=== PATIENT | male | born 1965 | race Hispanic/Latino ===

== ENCOUNTER 2022-01-19 13:45 | Emergency (ER) | payer SELFPAY ==
--- OUTSIDE RECORDS SUMMARY | 2022-01-19 13:52 | XMS REPORT | Continuity of Care Document ---
:1965 Author Organization [facility] t Address [address] [place] [address] Care Team Providers Name Role Phone Asked, No Pcp Primary Care Physician Unavailable PRADEEP REDDY Attending Clinician Unavailable VIVI DURAND Attending Clinician Unavailable Vivi De Jesus Attending Clinician Camille Perez Attending Clinician Pradeep Reddy MD Attending Clinician Osman Fontaine MD Attending Clinician Steffany Bean MD Attending Clinician Yi Glez MD Attending Clinician Arnoldo Horn Attending Clinician ARNOLDO HOFFMAN Attending Clinician Unavailable ALICIA FRITZ Attending Clinician Unavailable Bala Romeo Attending Clinician BALA RANKIN Attending Clinician Unavailable OSMAN FONTAINE Admitting Clinician Unavailable KEVIN FUNEZ Admitting Clinician Unavailable Osman Fontaine MD Admitting Clinician Payers Payer Name Policy Type Policy Number Effective Date Expiration Date S ource Problems Condition Condition Condition Status Onset Resolution Last Treating Co mments Source Name Details Category Date Date Treatment Clinician Date COVID-19 COVID-19 Disease Active 2021-0 Unive rs 1-28 ity of 00:00: [place] [address] Medical Branch Obesity Obesity Disease Active Univers (BMI (BMI 1-28 ity of 30-39.9) 30-39.9) 00:00: [address] Allergies, Adverse Reactions, Alerts Allergy Allergy Status Severity Reaction(s) Onset Inactive Treating Comm ents Source Name Type Date Date Clinician Rina Miguel Active Unknown 2019-05 Metho di ty to Reaction 0-16 st adverse 00:00: Hospita reaction 00 l s to drug NO KNOWN Drug Active Univers ALLERGIE Class ity of [facility] Social History Social Habit Start Date Stop Date Quantity Comments Source History SDOH [facility] Comment [facility] History of Heavy tobacco [facility] tobacco use smoker [facility] History SDOH [facility] Std [facility] Drinks History SDND [facility] Binge [facility] Exposure to 2021-12-16 2021-12-26 Not sure University SARS-CoV-2 00:00:00 14:34:00 [facility] (event) Branch Tobacco use and 2020-03-05 2020-03-05 Smokeless tobacco [facility] exposure 00:00:00 00:00:00 non-user Hospital Alcohol intake 2020-03-05 2020-03-05 Lifetime [facility] 00:00:00 00:00:00 non-drinker Hospital (finding) History SDND 2020-03-05 2020-03-05 1 [facility] Alcohol Frequency 00:00:00 00:00:00 Hospita l Sex Assigned At [birth year] [facility] 00:[facility] Smoking Status Start Date Stop Date Source Tobacco smoking consumption [facility] unknown Branch Heavy tobacco smoker 2020-03-05 00:00:00 [facility] Medications Ordered Filled Start Stop Current Ordering Indication Dosage Frequency Signature Comments Components Source Medication Medication Date Date Medication? Clinician (SIG) Name Name gabapentin 2021- No 300mg 300 mg, Un toño (NEURONTIN) 12-27 Oral, ity of capsule 300 00:00: 00:07 ONCE, 1 [place] mg 00 :00 dose, On Medical 12/26/21 Branch at 1900, SHORTY insulin 2021- No 5U 5 Units, Unive rs regular 12-26 Subcutaneo ity o f human 23:33: 23:42 us, ONCE, [place] (HUMULIN R) 00 :00 1 dose, On Me dical injection 5 Sun12/26/21 Br anch Units at 1845, Routine NaCl 0.9% 2021- No 1000mL at 999 Uni vers (NS) bolus 12-26-08 mL/hr, ity of infusion 21:45: 23:07 1,000 mL, [place] 1,000 mL 00 :00 IV Medical Infusion, Branch ONCE, 1 dose, On 12/26/21 at 1645, SHORTY gabapentin 2021- Yes [id number] 300mg Take 1 Univers 300 mg 12-26- capsule by ity of capsule 00:00: 04:59 mouth in [place] 00 :00 the Medical morning Branch and 1 capsule at noon and 1 capsule in the evening. Do all this for 30 days. insulin NPH 2021- Yes [id number] 30U inject 30 Univers and regular 12-26-08 Units ity of human 70-30 00:00: 04:59 under the [place] 100 unit/mL 00 :00 skin every Me dical (70-30) morning Branch injection and evening for 30 days. insulin Yes [id number] 32U inject 32 U nivers lispro, 2-09 Units ity of human, 100 00:00: under the [place] unit/mL 00 skin 3 Medical injection (three) Branch times daily with meals. insulin NPH Yes [id number] 30U inject 30 Univers 100 unit/mL 2-09 Units ity of injection 00:00: under the [place] 00 skin every Medical morning Branch and at bedtime. losartan 25 Yes [id number] 25mg Take 1 Univers mg tablet 2-09 tablet by ity o f 00:00: mouth [place] 00 daily. Medical Branch Diabetic Yes [id number] Use as Uni vers Supplies, 2-09 directed ity of Miscellan. 00:00: [place] Kit 00 Medical Branch insulin Yes [id number] 32U inject 32 U nivers lispro, 2-09 Units ity of human, 100 00:00: under the [place] unit/mL 00 skin 3 Medical injection (three) Branch times daily with meals. insulin NPH Yes [id number] 30U inject 30 Univers 100 unit/mL 2-09 Units ity of injection 00:00: under the [place] 00 skin every Medical morning Branch and at bedtime. losartan 25 Yes [id number] 25mg Take 1 Univers mg tablet 2-09 tablet by ity o f 00:00: mouth [place] 00 daily. Medical Branch Diabetic Yes [id number] Use as Uni vers Supplies, 2-09 directed ity of Miscellan. 00:00: [place] Kit 00 Medical Branch insulin Yes [id number] 32U inject 32 U nivers lispro, 2-09 Units ity of human, 100 00:00: under the [place] unit/mL 00 skin 3 Medical injection (three) Branch times daily with meals. insulin NPH Yes [id number] 30U inject 30 Univers 100 unit/mL 2-09 Units ity of injection 00:00: under the [place] 00 skin every Medical morning Branch and at bedtime. losartan 25 Yes [id number] 25mg Take 1 Univers mg tablet 2-09 tablet by ity o f 00:00: mouth [place] 00 daily. Medical Branch Diabetic Yes [id number] Use as Uni vers Supplies, 2-09 directed ity of Miscellan. 00:00: [place] Kit 00 Medical Branch benzonatate 2020- No [id number] 100mg Take 1 Univers 100 mg 06-29-24 capsule by ity of capsule 00:00: 05:59 mouth 3 [place] 00 :00 (three) Medical times Branch daily for 14 days. benzonatate 2020- No [id number] 100mg Take 1 Univers 100 mg 06-29-24 capsule by ity of capsule 00:00: 05:59 mouth 3 [place] 00 :00 (three) Medical times Branch daily for 14 days. insulin NPH Yes 30U 30 Units, U nivers (HUMULIN N) 06-28 Subcutaneo it y of injection 15:00: , [place] 30 Units 00 QAM+HS, Medical First dose Branch (after last modificati on) on Sun06/28/20 at 0900, Until Discontinu ed, Routine insulin Yes 32U 32 Units, Unive rs lispro - Subcutaneo ity of (human) 14:00: us, TID [place] (HumaLOG 00 MEALS, Medical U-100) First dose Branch injection (after 32 Units last modificati on) on 06/28/20 at 0800, Until Discontinu ed, Routine insulin NPH 2020- No 25U 25 Units, Univers (HUMULIN N) 06-28 Subcutaneo i ty of injection 03:00: 13:53 us, [place] 25 Units 00 :55 QAM+HS, Medical First dose Branch (after last modificati on) on 06/27/20 at 2100, Until Discontinu ed, Routine enoxaparin 2020- No [id number] 40mg inject 0.4 Univers 40 mg/0.4 06-28 mL under ity o f mL 00:00: 00:00 the skin [place] injection 00 :00 every 12 Medica l (twelve) Branch hours. furosemide 2020- No [id number] 20mg Inject 2 Univers 10 mg/mL 06-28 mL as ity of injection 00:00: 00:00 directed [place] 00 :00 every 12 Medical (twelve) Branch hours. insulin 2020- No [id number] 32U inject 32 Univers lispro, 06-28- Units ity of human, 100 00:00: 00:00 under the [place] unit/mL 00 :00 skin 3 Medical injection (three) Branch times daily with meals. insulin NPH 2020- No [id number] 30U inject 30 Univers 100 unit/mL 06-28- Units ity of injection 00:00: 00:00 under the [place] 00 :00 skin every Medical morning Branch and at bedtime. ipratropium 2020- No [id number] 1{puff} Inhale 1 Univers 17 06-28- Puff 4 ity of mcg/actuati 00:00: 00:00 (four) [place] on inhaler 00 :00 times Medical daily. Branch melatonin 3 2020- No [id number] 3mg Take 1 Univers mg tablet 06-28 tablet by ity of 00:00: 00:00 mouth at [place] 00 :00 bedtime. Medical Branch losartan 25 2020- No [id number] 25mg Take 1 Univers mg tablet 06-28 tablet by ity of 00:00: 00:00 mouth [place] 00 :00 daily. Medical Branch albuterol 2020- No [id number] 1{puff} Inhale 1 Univers 90 06-28 Puff 4 ity of mcg/actuati 00:00: 00:00 (four) [place] on inhaler 00 :00 times Medical daily. Branch acetaminoph 2020- No [id number] 650mg Take 2 Univers en 325 mg 06-28 tablets by ity of tablet 00:00: 00:00 mouth [place] 00 :00 every 6 Medical (six) Branch hours as needed for Pain (scale 1-3) or Temp > 38.5 C. benzonatate 2020- No [id number] 100mg Take 1 Univers 100 mg 06-28 capsule by ity of capsule 00:00: 00:00 mouth 3 [place] 00 :00 (three) Medical times Branch daily. dextrometho 2020- No [id number] 5mL Take 5 mL Univers rphan-guaif 06-28 by mouth ity of enesin 00:00: 00:00 every 6 [place] 10-100 mg/5 00 :00 (six) Medical mL solution hours as Bran ch needed for Cough. insulin 2020- No 28U 28 Units, [facility] lispro 06-27 Subcutaneo ity of (human) 18:00: 13:53 us, TID [place] (HumaLOG 00 :55 MEALS, Medical U-100) First dose Branch injection (after 28 Units last modificati on) on 06/27/20 at 1200, Until Discontinu ed, Routine insulin NPH 2020- No [id number] 25U inject 25 Univers 100 unit/mL 06-27- Units ity of injection 00:00: 00:00 under the [place] 00 :00 skin every Medical morning Branch and at bedtime for 30 days. insulin 2020- No [id number] 10U inject 10 Univers lispro, 06-2708 Units ity of human, 100 00:00: 00:00 under the [place] unit/mL 00 :00 skin 3 Medical injection (three) Branch times daily with meals. insulin 2020- No [id number] 28U inject 28 Univers lispro, 06-27 Units ity of human, 100 00:00: 00:00 under the [place] unit/mL 00 :00 skin 3 Medical injection (three) Branch times daily with meals for 30 days. insulin 2020- No 22U 22 Units, Univ ers lispro 06-25 Subcutaneo ity of (human) 14:00: 15:32 us, TID [place] (HumaLOG 00 :16 MEALS, Medical U-100) First dose Branch injection (after 22 Units last modificati on) on Sun06/25/20 at 0800, Until Discontinu ed, Routine insulin NPH 2020- No 20U 20 Units, Univers (HUMULIN N) 06-25 Subcutaneo i ty of injection 03:00: 15:32 us, [place] 20 Units 00 :16 QAM+HS, Medical First dose Branch (after last modificati on) on Sun06/24/20 at 2100, Until Discontinu ed, Routine dexamethaso No 6mg 6 mg, IV U nivers ne 06-24 Push, ity of (DECADRON 23:00: 22:25 DAILY AT [place] PHOSPHATE) 00 :00 1700, 4 Medica l injection 6 doses, Branch mg First dose (after last reorder) on Sun06/24/20 at 1700, Last dose on Sun06/27/20 at 1700, Routine furosemide Yes 20mg 20 mg, Unive rs (LASIX) 06-24 Slow IV ity of injection 02:00: Push, [place] 20 mg 00 Q12H, Medical First dose Branch on Sun06/23/20 at 2000, Until Discontinu ed, Routine insulin 2020- No 20U 20 Units, Univ ers lispro 06-23 Subcutaneo ity of (human) 23:00: 23:02 us, TID [place] (HumaLOG 00 :09 MEALS, Medical U-100) First dose Branch injection (after 20 Units last modificati on) on Sun06/23/20 at 1700, Until Discontinu ed, Routine losartan Yes 25mg 25 mg, Univers (COZAAR) 06-23 Oral, ity of tablet 25 22:00: DAILY, [place] mg 00 First dose Medical on Sun06/23/20 at 1600, Until Discontinu ed, Routine insulin NPH No 18U 18 Units, Univers (HUMULIN N) 06-23 Subcutaneo i ty of injection 03:00: 23:02 us, [place] 18 Units 00 :09 QAM+HS, Medical First dose Branch (after last modificati on) on Sun06/22/20 at 2100, Until Discontinu ed, Routine insulin No 16U 16 Units, Univ ers lispro 06-23 Subcutaneo ity of (human) 00:30: 22:07 us, TID [place] (HumaLOG 00 :47 MEALS, Medical U-100) First dose Branch injection (after 16 Units last modificati on) on Sun06/22/20 at 1830, Until Discontinu ed, Routine hydrALAZINE No 10mg 10 mg, Uni vers (APRESOLINE 06-22 Oral, ity of ) tablet 10 09:48: 23:50 Q6HPRN, 2 [place] mg 41 :00 doses, Medical Starting Branch Sun06/22/20 at 0348, Until Discontinu ed, Routine, Sustained SBP>160 enoxaparin Yes 40mg 40 mg, Unive rs (LOVENOX) 06-22 Subcutaneo ity of injection 02:00: us, Q12H, [place] 40 mg 00 First dose Medical on Sun06/21/20 at 2000, Until Discontinu ed, Routine insulin No 12U 12 Units, Univ ers lispro 06-21 Subcutaneo ity of (human) 23:00: 00:05 us, TID [place] (HumaLOG 00 :18 MEALS, Medical U-100) First dose Branch injection (after 12 Units last modificati on) on Sun06/21/20 at 1700, Until Discontinu ed, Routine melatonin Yes 3mg 3 mg, Univers (MELATIN) 2-01 Oral, QHS, ity of tablet 3 mg 03:00: First dose [place] 00 on [facility] 06/20/20 at [place] 2100, Until Discontinu ed, Routine ondansetron Yes 4mg 4 mg, Slow Univers (ZOFRAN 06-20 IV Push, ity of (PF)) 14:26: Q6HPRN, [place] injection 4 53 Starting Medi anthony mg [facility] 06/20/20 at 0826, Until Discontinu ed, Routine, Nausea and Vomiting (N/V) melatonin 2020- No 3mg 3 mg, Univer s (MELATIN) 06-20 Oral, ity of tablet 3 mg 04:00: 03:34 ONCE, 1 [place] 00 :00 dose, [facility] 06/19/20 at Branch 2200, Routine enoxaparin 2020- No 1mg/kg 111 mg Un toño (LOVENOX) 06-20 (rounded ity o f injection 02:00: 23:07 from 108.9 [place] 111 mg 00 :20 mg = 1 Medical mg/kg [place] ?108.9 kg), Subcutaneo us, Q12H, First dose (after last modificati on) on [facility] 06/19/20 at 2000, Until Discontinu ed, Routine Sliding Yes [facility]cut[facility]o [facility] ers Scale 06-19 , TID ity of Insulin - 23:00: MEALS+HS, [place] Lispro 00 First dose Medical (HumaLOG) + (after Branch Fsbg last Testing modificati on) on [facility] 06/19/20 at 1700, Until Discontinu ed, Routine insulin 2020- No 10U 10 Units, [facility] lispro 06-19 Subcutaneo ity of (human) 23:00: 21:03 us, TID [place] (HumaLOG 00 :43 MEALS, Medical U-100) First dose Branch injection (after 10 Units last modificati on) on [facility] 06/19/20 at 1700, Until Discontinu ed, Routine insulin NPH 2020- No 15U 15 Units, Univers (HUMULIN N) 06-1903 Subcutaneo i ty of injection 15:45: 00:05 , [place] 15 Units 00 :18 QAM+HS, Medical First dose Branch on 06/19/20 at 0945, Until Discontinu ed, Routine ipratropium Yes 1{puff} 1 Puff, Univers (ATROVENT -30 Inhalation ity of HFA) 14:00: , QID, [place] inhaler 1 00 First dose Medi anthony Puff on Sat Branch 06/19/20 at 0800, Until Discontinu ed, Routine
Is this order for a patient with suspected or confirmed COVID-19 infection? Yes albuterol Yes 1{puff} 1 Puff, Un toño (VENTOLIN) 30 Inhalation ity of inhaler 1 14:00: , QID, [place] Puff 00 First dose Medical on Sat Branch 06/19/20 at 0800, Until Discontinu ed, Routine
Is this order for a patient with suspected or confirmed COVID-19 infection? Yes morpHINE 2020- No 1mg 1 mg, Slow Un toño injection 1 06-19 IV Push, ity of mg 14:00: 14:02 ONCE, 1 [place] 00 :00 dose, [facility] Medical 06/19/20 at Branch 0800, Routine insulin 2020- No 3U 3 Units, Unive rs lispro 06-19 Subcutaneo ity of (human) 14:00: 20:16 , D [place] (HumaLOG 00 :39 MEALS, Medical U-100) First dose Branch injection 3 on Sat Units 06/19/20 at 0800, Until Discontinu ed, Routine benzonatate Yes 100mg 100 mg, Un toño (TESSALON 130 Oral, TID, ity of PERLES) 04:00: First dose [place] capsule 100 00 on Fri Medica l mg 06/18/20 at Branch 2200, Until Discontinu ed, Routine dextrometho 0 Yes 5mL 5 mL, Unive rs rphan-guaif 30 Oral, ity of enesin 03:53: Q6R, [place] (ROBITUSSIN 59 Starting Medi anthony DM) 10-100 Fri Branch mg/5 mL 06/18/20 at solution 5 2153, mL Until Discontinu ed, Routine, Cough HYDROcodone Yes 1{tbl} 1 tablet, Univers -acetaminop -30 Oral, ity of hen (NORCO 03:52: Q6HPRN, [place] 5) 5-325 mg 35 Starting Medi anthony tablet 1 Fri Branch tablet 06/18/20 at 2152, Until Discontinu ed, Routine, Pain (scale 4-6) acetaminoph Yes 650mg 650 mg, Un toño en 30 Oral, ity of (TYLENOL) 03:52: Q6HPRN, [place] tablet 650 20 Starting Medic al mg Fri Branch 06/18/20 at 2152, Until Discontinu ed, Routine, Pain (scale 1-3), Temp > 38.5 C albuterol Yes 2{puff} 2 Puff, Un toño (VENTOLIN) 30 Inhalation ity of inhaler 2 03:52: , Q4HPRN, [place] Puff 02 Starting Medical Fri Branch 06/18/20 at 2152, Until Discontinu ed, Routine, Wheezing, Shortness of Breath, Bronchospa sm, Chest tightness< br>Is this order for a patient with suspected or confirmed COVID-19 infection? Yes dexamethaso 2020- No 6mg 6 mg, IV U nivers ne 06-18 02-03 Push, ity of (DECADRON 23:00: 23:25 DAILY AT [place] PHOSPHATE) 00 :00 1700, 6 Medica l injection 6 doses, Branch mg First dose on Sun06/18/20 at 1700, Last dose on Sun06/23/20 at 1700, Routine enoxaparin 2020- No 40mg 40 mg, Univ ers (LOVENOX) 06-1830 Subcutaneo ity of injection 14:00: 18:22 us, Q12H, [place] 40 mg 00 :38 First dose Medical (after Branch last modificati on) on Sun06/18/20 at 0800, Until Discontinu ed, Routine ALPRAZolam 2020- No .25mg 0.25 mg, U nivers (XANAX) 06-18 Oral, ONCE ity o f tablet 0.25 10:15: 09:18 NOW, 1 [place] mg 00 :00 dose, Fri Medical 06/18/20 at Branch 0415, Routine ondansetron 2020- No 4mg 4 mg, Slow Univers (ZOFRAN 06-18 IV Push, ity of (PF)) 04:13: 13:59 Q6HPRN, 3 [place] injection 4 48 :00 doses, Medica l mg Starting Branch [place] 06/17/20 at 2213, Until Discontinu ed, Routine, Nausea and Vomiting (N/V) insulin 2020- No 10U 10 Units, Univ ers regular 06-18 IV Push, ity of human 04:00: 02:54 ONCE NOW, [place] (HUMULIN R) 00 :00 1 dose, Medic al injection [facility] 10 Units 06/17/20 at 2200, Routine Sliding 2020- No Subcutaneo Uni vers Scale 06-18 us, TID ity of Insulin - 03:00: 20:16 MEALS+HS, [place] Lispro 00 :39 First dose Medical (HumaLOG) + on [place] Branch [facility] 06/17/20 at Testing 2100, Until Discontinu ed, Routine acetaminoph 2020- No 650mg 650 mg, U nivers en 06-18 Oral, ity of (TYLENOL) 02:45: 03:54 Q6HPRN, [place] tablet 650 30 :56 Starting Medic al mg [place] Branch 06/17/20 at 2045, Until 06/18/20 at 2154, Routine, Pain (scale 1-3) azithromyci 2020- No 500mg 500 mg, IV Univers n 06-18 Piggyback, ity of (ZITHROMAX) 02:30: 04:38 ONCE, 1 [place] 500 mg in 00 :00 dose, [place] Medic al NaCl 0.9% 06/17/20 at Bran ch (NS) 250 mL 2029, 250 VIAL-MATE mL
Reas IV on for piggyback Anti-Infec tive: Empiric Therapy for Suspected Infection< br>Empiric Therapy Site: Respirator y
Durat ion of therapy: 72 hours cefTRIAXone 2020- No 1000mg 1,000 mg, Univers (ROCEPHIN) 06-18 IV ity of 1,000 mg in 02:30: 03:05 Piggyback, [place] NaCl 0.9% 00 :00 ONCE, 1 Medical (NS) 50 mL dose, [place] Bran ch MINI-BAG 06/17/20 at 2030, 50 mL
Reas on for Anti-Infec tive: Empiric Therapy for Suspected Infection< br>Empiric Therapy Site: Respirator y
Durat ion of therapy: 72 hours iohexol 2020- No 100mL 100 mL, Unive rs (OMNIPAQUE 06-18 Intravenou it y of 350 02:15: 02:15 s, ONCE, 1 [place] BULK-100 00 :00 dose, [place] Medica l mL) 06/17/20 at [place] injection 2014, 100 mL Routine ibuprofen No 600mg 600 mg, Uni vers (IBU) 06-18 Oral, ity of tablet 600 02:15: 01:10 ONCE, 1 [place] mg 00 :00 dose, [facility] Medical 06/17/20 at [place] 2014, SHORTY NaCl 0.9% 2020- No 1000mL at 150 Uni vers (NS) IV 06-18 mL/hr, IV ity of infusion 01:15: 04:08 Infusion, [place] 1,000 mL 00 :55 CONTINUOUS Medic al , Starting [facility] 06/17/20 at 1915, Until 06/19/20 at 2208, SHORTY azithromyci 2020- No [id number] 250mg Take 1 Univers n 06-16 [id number] tablet by ity of (ZITHROMAX) 00:00: 00:00 mouth [place] 250 mg 00 :00 daily for Medical tablet 4 days. Branch Take 500 mg day 1, then 250 mg days 2 to 5. azithromyci 2020- No [id number] 250mg Take 1 Univers n 06-16 [id number] tablet by ity of (ZITHROMAX) 00:00: 05:59 mouth [place] 250 mg 00 :00 daily for Medical tablet 4 days. Branch Take 500 mg day 1, then 250 mg days 2 to 5. azithromyci 2020- No 500mg 500 mg, U nivers n 06-15 Oral, ity of (ZITHROMAX) 08:15: 07:24 ONCE, 1 [place] tablet 500 00 :00 dose, Tue Medi anthony mg 06/15/20 at Branch 0215, SHORTY
Re ason for Anti-Infec tive: Documented Infection< br>Documen patrick Infection Site: Respirator y
Durat ion of Therapy: Other (see Comments) iohexol 2020- No 100mL 100 mL, Unive rs (OMNIPAQUE 06-15 Intravenou it y of 350 06:00: 06:00 s, ONCE, 1 [place] BULK-100 00 :00 dose, Tue Medica l mL) 06/15/20 at [place] injection 0000, 100 mL Routine FENTanyl PF 2020- No 50ug 50 mcg, Un toño (SUBLIMAZE 06-15 Slow IV ity o f (PF)) 05:30: 05:30 Push, [place] injection 00 :00 ONCE, 1 Medical 50 mcg dose, [facility] 06/14/20 at 2330, SHORTY ketorolac 2020- No 30mg 30 mg, Unive rs (TORADOL) 06-15 Slow IV ity of injection 05:30: 05:30 Push, [place] 30 mg 00 :00 ONCE, 1 Medical dose, [facility] 06/14/20 at 2330, SHORTY
Fa culty member approving Restricted medication : ARNOLDO HOFFMAN ondansetron 2020- No 4mg 4 mg, Slow Univers (ZOFRAN 06-15 IV Push, ity of (PF)) 05:30: 05:30 ONCE, 1 [place] injection 4 00 :00 dose, Mon Med ical mg 06/14/20 at [place] 2330, SHORTY albuterol Yes [id number] 2{puff} Inhale 2 Univers 90 06-15 [id number] Puffs ity of mcg/actuati 00:00: every 4 [place] on inhaler 00 (four) Medical hours as Branch needed for Wheezing or Shortness of Breath. albuterol Yes [id number] 2{puff} Inhale 2 Univers 90 1-26 [id number] Puffs ity of mcg/actuati 00:00: every 4 [place] on inhaler 00 (four) Medical hours as Branch needed for Wheezing or Shortness of Breath. albuterol Yes [id number] 2{puff} Inhale 2 Univers 90 1-26 [id number] Puffs ity of mcg/actuati 00:00: every 4 [place] on inhaler 00 (four) Medical hours as Branch needed for Wheezing or Shortness of Breath. albuterol Yes [id number] 2{puff} Inhale 2 Univers 90 1-26 [id number] Puffs ity of mcg/actuati 00:00: every 4 [place] on inhaler 00 (four) Medical hours as Branch needed for Wheezing or Shortness of Breath. Zinc 2020- No [id number] 100mg Take 100 Univers Gluconate 06-15- [id number] mg by ity o f 100 mg Tab 00:00: 05:59 mouth [place] 00 :00 daily for Medical 30 days. Branch Zinc 2020- No [id number] 100mg Take 100 Univers Gluconate 06-15- [id number] mg by ity o f 100 mg Tab 00:00: 05:59 mouth [place] 00 :00 daily for Medical 30 days. Branch Zinc 2020- No [id number] 100mg Take 100 Univers Gluconate 06-15- [id number] mg by ity o f 100 mg Tab 00:00: 05:59 mouth [place] 00 :00 daily for Medical 30 days. Branch metFORMIN Yes 1000mg Q.5D Take 1,000 Methodi (GLUCOPHAGE 8-[address] ) 500 mg 00:00: mouth 2 Hospit a tablet 00 (two) l times a day. gabapentin 0 Yes 300mg Take 300 Me thodi (NEURONTIN) 8-[address] 300 mg 00:00: mouth. Hospita capsule 00 l metFORMIN 0 Yes 1000mg Q.5D Take 1,000 Methodi (GLUCOPHAGE 8-[address] ) 500 mg 00:00: mouth 2 Hospit a tablet 00 (two) l times a day. gabapentin Yes 300mg Take 300 Me thodi (NEURONTIN) 8-[address] 300 mg 00:00: mouth. Hospita capsule 00 l insulin 2019- No 10U 10 Units, Univ ers regular 01-12 Slow IV ity of human 22:30: 21:50 Push, [place] (HUMULIN R) 00 :00 ONCE, 1 Medic al injection dose, Tue Branc h 10 Units 01/13/20 at 1730, Routine cefTRIAXone 2019- No 1000mg 1,000 mg, Univers (ROCEPHIN) 01-12 IV ity of 1,000 mg in 22:30: 22:22 Piggyback, [place] NaCl 0.9% 00 :00 ONCE, 1 Medical (NS) 50 mL dose, Tue Bran ch MINI-BAG 01/13/20 at 1730, 50 mL
Reas on for Anti-Infec tive: Documented Infection< br>Documen patrick Infection Site: Skin / Soft Tissue
Duration of Therapy: Other (see Comments) iohexol 2020- No 120mL 120 mL, Unive rs (OMNIPAQUE 01-12 Intravenou it y of 350 20:45: 20:45 s, ONCE, 1 [place] BULK-100 00 :00 dose, Tue Medica l mL) 01/13/20 at Branch injection 1545, 120 mL Routine metFORMIN 2020- No [id number] 1000mg Take 2 Univers 500 mg 01-12 tablets by ity of tablet 00:00: 04:59 mouth 2 [place] 00 :00 (two) Medical times Branch daily for 30 days. gabapentin 2020- No [id number] 300mg Take 1 Univers 300 mg 01-12 capsule by ity of capsule 00:00: 04:59 mouth 3 [place] 00 :00 (three) Medical times Branch daily for 10 days. cephALEXin 2020- No [id number] 500mg Take 1 Univers (KEFLEX) 01-12 capsule by ity of 500 mg 00:00: 04:59 mouth 2 [place] capsule 00 :00 (two) Medical times Branch daily for 10 days. Vital Signs Vital Name Observation Time Observation Value Comments Source Systolic blood 2021-12-26 19:33:00 155 mm[Hg] Univer sity of pressure [place] Medical Branch Diastolic blood 2021-12-26 19:33:00 85 mm[Hg] Unive rsity of pressure [place] Medical Branch Heart rate 2021-12-26 19:33:00 65 /min Universi ty of [place] [facility] Body temperature 2021-12-26 19:33:00 36.44 Shayna [facility] [place] [facility] Respiratory rate 2021-12-26 19:33:00 19 /min [facility] [place] [facility] Oxygen saturation in 2021-12-26 19:33:00 99 /min [facility] by [place] [employer] Pulse oximetry Branch Body height 2021-12-26 19:31:00 185.4 cm [facility] [place] [facility] Body weight 2021-12-26 19:31:00 104.327 kg [facility] [place] [facility] BMI 2021-12-26 19:31:00 30.34 kg/m2 [facility] [place] [facility] Systolic blood 2020-06-29 22:12:00 120 mm[Hg] [facility] [place] [facility] Diastolic blood 2020-06-29 22:12:00 71 mm[Hg] [facility] [place] [facility] Heart rate 2020-06-29 22:12:00 77 /min [facility] [place] [facility] Body temperature 2020-06-29 22:12:00 36.61 Shayna [facility] [place] [facility] Respiratory rate 2020-06-29 22:12:00 20 /min [facility] [place] [facility] Oxygen saturation in 2020-06-29 22:12:00 95 /min [facility] by [place] [employer] Pulse oximetry Branch Body height 2020-06-18 04:02:00 188 cm [facility] [place] [facility] Body weight 2020-06-18 04:02:00 108.863 kg [facility] [place] [facility] BMI 2020-06-18 04:02:00 30.80 kg/m2 [facility] [place] [facility] Systolic blood 2020-06-29 22:12:00 120 mm[Hg] [facility] [place] [facility] Diastolic blood 2020-06-29 22:12:00 71 mm[Hg] [facility] [place] [facility] Heart rate 2020-06-29 22:12:00 77 /min [facility] [place] [facility] Body temperature 2020-06-29 22:12:00 36.61 Shayna [facility] [place] [facility] Respiratory rate 2020-06-29 22:12:00 20 /min [facility] [place] [facility] Oxygen saturation in 2020-06-29 22:12:00 95 /min [facility] [place] [employer] Pulse oximetry Branch Body height 2020-06-18 04:02:00 188 cm [facility] [place] [facility] Body weight 2020-06-18 04:02:00 108.863 kg [facility] [place] [facility] BMI 2020-06-18 04:02:00 30.80 kg/m2 [facility] [place] [facility] Systolic blood 2020-06-15 07:09:00 119 mm[Hg] [facility] [place] [facility] Diastolic blood 2020-06-15 07:09:00 69 mm[Hg] [facility] [place] [facility] Heart rate 2020-06-15 07:09:00 57 /min [facility] [place] [facility] Body temperature 2020-06-15 07:09:00 36.72 Shayna [facility] [place] [facility] Respiratory rate 2020-06-15 07:09:00 13 /min [facility] [place] [facility] Oxygen saturation in 2020-06-15 07:09:00 97 /min [facility] [place] [employer] P[facility] Branch Body weight 2020-06-15 04:28:00 108.863 kg [facility] [place] [facility] BMI 2020-06-15 04:28:00 31.66 kg/m2 [facility] [place] [facility] Body height 2020-06-15 04:26:00 185.4 cm [facility] [place] [facility] Systolic blood 2020-06-15 07:09:00 119 mm[Hg] [facility] [place] [facility] Diastolic blood 2020-06-15 07:09:00 69 mm[Hg] [facility] [place] [facility] Heart rate 2020-06-15 07:09:00 57 /min [facility] [place] [facility] Body temperature 2020-06-15 07:09:00 36.72 Shayna [facility] Respiratory rate 2020-06-15 07:09:00 13 /min [facility] [place] [facility] Oxygen saturation in 2020-06-15 07:09:00 97 /min [facility] blood by [facility] Pulse oximetry Branch Body weight 2020-06-15 04:28:00 108.863 kg [facility] [place] [facility] BMI 2020-06-15 04:28:00 31.66 kg/m2 [facility] [place] [facility] [place] Body height 2020-06-15 04:26:00 185.4 cm [facility] Systolic blood 2020-01-13 21:46:00 116 mm[Hg] [facility] Diastolic blood 2020-01-13 21:46:00 72 mm[Hg] Unive rsity of pressure [facility] Heart rate 2020-01-13 21:46:00 62 /min [facility] [place] [facility] [place] Body temperature 2020-01-13 21:46:00 36.61 Shayna [facility] [place] [facility] Respiratory rate 2020-01-13 21:46:00 16 /min [facility] [place] [facility] Oxygen saturation in 2020-01-13 21:46:00 99 /min [facility] by [facility] Pulse oximetry Branch Body weight 2020-01-13 19:38:00 108.863 kg [facility] [place] [facility] Systolic blood 2020-01-13 21:46:00 116 mm[Hg] [facility] [place] [facility] Diastolic blood 2020-01-13 21:46:00 72 mm[Hg] Unive rsity of pressure [facility] Heart rate 2020-01-13 21:46:00 62 /min [facility] [place] [facility] Body temperature 2020-01-13 21:46:00 36.61 Shayna [facility] [place] [facility] Respiratory rate 2020-01-13 21:46:00 16 /min [facility] [place] [facility] Oxygen saturation in 2020-01-13 21:46:00 99 /min [facility] by [facility] Pulse oximetry Branch Body weight 2020-01-13 19:38:00 108.863 kg [facility] [place] [facility] Procedures Procedure Date / Time Performing Clinician Source Performed EKG-12 LEAD 2021-12-27 00:01:26 Kevin Funez [facility] POCT GLUCOSE (AUTOMATED) 2021-12-26 23:12:00 Vivi Durand [facility] TROPONIN I 2021-12-26 20:21:00 Kevin Funez [facility] COMP. METABOLIC PANEL 2021-12-26 20:21:00 Kevin Funez [facility] ([id number]) [facility] CBC WITH DIFF 2021-12-26 20:21:00 Kevin Funez [facility] N-TERMINAL PRO-BNP 2021-12-26 20:21:00 Kevin Funez [facility] XR CHEST 2 VW 2021-12-26 19:48:25 Kevin Funez [facility] POCT GLUCOSE (AUTOMATED) 2021-12-26 19:33:00 Doctor Unassigned, [facility] [place] [facility] CONSENT/REFUSAL FOR 2021-12-26 19:23:27 Doctor Unassigned, [facility] DIAGNOSIS AND TREATMENT [place] [facility] POCT GLUCOSE (AUTOMATED) 2020-06-29 17:44:00 Pradeep Reddy [facility] POCT GLUCOSE (AUTOMATED) 2020-06-29 14:41:00 Pradeep Reddy [facility] POCT GLUCOSE (AUTOMATED) 2020-06-29 03:09:00 Pradeep Reddy [facility] POCT GLUCOSE (AUTOMATED) 2020-06-28 23:30:00 BarryPradeep [facility] POCT GLUCOSE (AUTOMATED) 2020-06-28 21:53:00 Pradeep Reddy [facility] COVID-19 (ID NOW RAPID 2020-06-28 20:51:00 Jolly Antoine [facility] TESTING) Medical [place] LAB ONLY COVID 2020-06-28 20:51:[address] [facility] INTERPRETATION [facility] POCT GLUCOSE (AUTOMATED) 2020-06-28 18:20:00 Barry, Pradeep [facility] POCT GLUCOSE (AUTOMATED) 2020-06-28 13:46:00 Barry, Pradeep [facility] POCT GLUCOSE (AUTOMATED) 2020-06-28 03:00:00 Barry, Pradeep [facility] POCT GLUCOSE (AUTOMATED) 2020-06-27 21:48:00 Barry, Pradeep [facility] POCT GLUCOSE (AUTOMATED) 2020-06-27 17:44:00 Barry, Pradeep [facility] POCT GLUCOSE (AUTOMATED) 2020-06-27 14:12:00 Barry, Pradeep [facility] POCT GLUCOSE (AUTOMATED) 2020-06-27 14:10:00 Barry, Pradeep [facility] POCT GLUCOSE (AUTOMATED) 2020-06-27 05:35:00 Barry, Pradeep [facility] POCT GLUCOSE (AUTOMATED) 2020-06-27 02:13:00 Barry, Pradeep [facility] POCT GLUCOSE (AUTOMATED) 2020-06-26 23:41:00 Barry, Pradeep [facility] XR CHEST 1 VW 2020-06-26 21:39:00 Steffany Bean [facility] COMP. METABOLIC PANEL 2020-06-26 18:13:00 Steffany Bean [facility] ([id number]) [facility] CBC WITH DIFF 2020-06-26 18:13:00 Steffany Bean [facility] POCT GLUCOSE (AUTOMATED) 2020-06-26 18:05:00 Barry, Pradeep [facility] POCT GLUCOSE (AUTOMATED) 2020-06-26 14:22:00 Barry, Pradeep [facility] POCT GLUCOSE (AUTOMATED) 2020-06-26 05:29:00 Barry, Pradeep [facility] POCT GLUCOSE (AUTOMATED) 2020-06-26 02:01:00 Barry, Pradeep [facility] POCT GLUCOSE (AUTOMATED) 2020-06-25 23:38:00 Barry, Pradeep [facility] POCT GLUCOSE (AUTOMATED) 2020-06-25 18:12:00 Barry, Pradeep [facility] POCT GLUCOSE (AUTOMATED) 2020-06-25 14:53:00 Barry, Pradeep [facility] POCT GLUCOSE (AUTOMATED) 2020-06-25 04:24:00 Barry, Pradeep [facility] POCT GLUCOSE (AUTOMATED) 2020-06-25 01:54:00 Barry, Pradeep [facility] POCT GLUCOSE (AUTOMATED) 2020-06-25 00:00:00 Barry, Pradeep [facility] POCT GLUCOSE (AUTOMATED) 2020-06-24 17:41:00 Barry, Pradeep [facility] POCT GLUCOSE (AUTOMATED) 2020-06-24 14:14:00 Barry, Pradeep [facility] POCT GLUCOSE (AUTOMATED) 2020-06-24 02:52:00 Barry, Pradeep [facility] POCT GLUCOSE (AUTOMATED) 2020-06-23 23:24:00 Barry, Pradeep [facility] POCT GLUCOSE (AUTOMATED) 2020-06-23 17:52:00 Barry, Pradeep [facility] XR CHEST 1 VW 2020-06-23 17:01:09 Steffany Bean [facility] POCT GLUCOSE (AUTOMATED) 2020-06-23 14:24:00 Barry, Pradeep [facility] POCT GLUCOSE (AUTOMATED) 2020-06-23 02:16:00 Barry, Pradeep [facility] POCT GLUCOSE (AUTOMATED) 2020-06-22 23:47:00 BarryNashPradeep U [facility] POCT GLUCOSE (AUTOMATED) 2020-06-22 17:45:00 BarryNashPradeep U [facility] POCT GLUCOSE (AUTOMATED) 2020-06-22 14:21:00 BarryNashPradeep U [facility] POCT GLUCOSE (AUTOMATED) 2020-06-22 02:08:00 BarryNashPradeep U [facility] POCT GLUCOSE (AUTOMATED) 2020-06-21 23:01:00 BarryNashPradeep U [facility] BILATERAL VENOUS DUPLEX 2020-06-21 19:31:22 Steffany Bean [facility] LOWER EXTREMITY BY [facility] VASCULAR LAB POCT GLUCOSE (AUTOMATED) 2020-06-21 17:44:00 Pradeep Reddy U [facility] D-DIMER 2020-06-21 16:14:00 [facility] 2020-06-21 16:14:00 Steffany Bean [facility] POCT GLUCOSE (AUTOMATED) 2020-06-21 15:32:00 BarryNashPradeep U [facility] POCT GLUCOSE (AUTOMATED) 2020-06-21 14:05:00 BarryNashPradeep U [facility] POCT GLUCOSE (AUTOMATED) 2020-06-21 03:36:00 BarryNashPradeep U [facility] POCT GLUCOSE (AUTOMATED) 2020-06-20 22:38:00 Barry, Pradeep U [facility] POCT GLUCOSE (AUTOMATED) 2020-06-20 18:09:00 Barry Pradeep U [facility] POCT GLUCOSE (AUTOMATED) 2020-06-20 14:01:00 Barry Pradeep U [facility] POCT GLUCOSE (AUTOMATED) 2020-06-20 02:22:00 Pradeep Reddy [facility] POCT GLUCOSE (AUTOMATED) 2020-06-19 23:41:00 Pradeep Reddy [facility] POCT GLUCOSE (AUTOMATED) 2020-06-19 17:53:00 Pradeep Reddy [facility] POCT GLUCOSE (AUTOMATED) 2020-06-19 15:30:00 Pradeep Reddy [facility] EXTRA TUBE LAV 2020-06-19 15:14:00 Zhen [facility] EXTRA TUBE LT. BLUE 2020-06-19 15:14:00 [facility] 2020-06-19 15:14:00 [facility] TROPONIN I 2020-06-19 15:13:00 [facility] HEPATIC FUNCTION PANEL 2020-06-19 11:30:00 Chastity Cameron [facility] ([id number]) (ALB,T.PRO,BILI [facility] T,BU/BC,ALT,AST,ALK PHOS) POCT GLUCOSE (AUTOMATED) 2020-06-19 02:06:00 Pradeep Reddy [facility] POCT GLUCOSE (AUTOMATED) 2020-06-18 22:55:00 Pradeep Reddy [facility] POCT GLUCOSE (AUTOMATED) 2020-06-18 17:33:00 Pradeep Reddy [facility] LACTATE DEHYDROGENASE 2020-06-18 09:09:00 Cj Benito [facility] FERRITIN SERUM 2020-06-18 09:09:00 Thong [facility] GLYCOSYLATED HEMOGLOBIN 2020-06-18 09:09:00 Thong [facility] (A1C) [facility] INTERLEUKIN 6 2020-06-18 09:08:00 Thong [facility] C-REACTIVE PROTEIN 2020-06-18 09:08:00 Ahmed, Jc [facility] PHOSPHORUS 2020-06-18 09:07:00 Thong [facility] MAGNESIUM 2020-06-18 09:07:00 Thong [facility] BASIC METABOLIC PANEL 2020-06-18 09:07:00 [facility] ([facility], K, CL, CO2, GLUCOSE, Medica l Branch BUN, CREATININE, CA) CBC WITH DIFF 2020-06-18 09:07:00 Thong [facility] POCT GLUCOSE (AUTOMATED) 2020-06-18 03:40:00 Pradeep Reddy [facility] POCT GLUCOSE (AUTOMATED) 2020-06-18 02:53:00 Pradeep Reddy [facility] COVID-19 (ID NOW RAPID 2020-06-18 02:38:00 Pradeep Reddy [facility] TESTING) Medical Branch LAB ONLY COVID 2020-06-18 02:38:00 Pradeep Reddy [facility] INTERPRETATION [facility] ABG+COOX+NA+K+GLU+CA2+ 2020-06-18 02:32:00 Pr[facility] Red[facility] CHEST PULMONARY 2020-06-18 02:13:27 Pradeep Reddy [facility] ANGIOGRAM [facility] XR CHEST 1 VW 2020-06-18 01:44:35 Darius [facility] BLOOD CULTURE SCREEN 2020-06-18 01:40:00 Pradeep Reddy [facility] LACTIC ACID WHOLE BLOOD 2020-06-18 01:14:00 Dmitri Mccoy [facility] TROPONIN I 2020-06-18 01:09:00 Darius [facility] HEPATIC FUNCTION PANEL 2020-06-18 01:09:00 Dmitri Mccoy [facility] ([id number]) (ALB,T.PRO,BILI Medical Branch T,BU/BC,ALT,AST,ALK PHOS) BASIC METABOLIC PANEL 2020-06-18 01:09:00 Dmitri Mccoy [facility] (NA, K, CL, CO2, GLUCOSE, Medica l Branch BUN, CREATININE, CA) CBC WITH DIFF 2020-06-18 01:09:00 Dmitri Mccoy [facility] EXTRA TUBE LT. BLUE 2020-06-18 01:09:00 BarryPradeep presley [facility] HB ECG ROUTINE & RHYTHM 2020-06-18 00:34:55 Darius [facility] HOSPITAL ADMISSION 2020-06-17 06:01:00 Doctor Unassigned, [facility] [place] [facility] CT ABDOMEN PELVIS W 2020-06-15 05:56:00 Arnoldo Hoffman [facility] XR CHEST 1 VW 2020-06-15 04:48:05 Arnoldo Hoffman [facility] LIPASE 2020-06-15 04:36:00 Arnoldo Hoffman [facility] TROPONIN I 2020-06-15 04:36:00 Arnoldo Hoffman [facility] HEPATIC FUNCTION PANEL 2020-06-15 04:36:00 Arnoldo Hoffman [facility] ([id number]) (ALB,T.PRO,BILI [facility] T,BU/BC,ALT,AST,ALK PHOS) BASIC METABOLIC PANEL 2020-06-15 04:36:00 Arnoldo Hoffman [facility] (NA, K, CL, CO2, GLUCOSE, Medica l Branch BUN, CREATININE, CA) CBC WITH DIFF 2020-06-15 04:36:00 Arnoldo Hoffman [facility] POCT GLUCOSE (AUTOMATED) 2020-01-13 22:41:00 Bala Rankin [facility] ABDOMEN PELVIS W 2020-01-13 20:59:[address] [facility] CONTRAST [facility] COVID-19 (ID NOW RAPID 2020-01-13 20:21:00 Bala Rankin [facility] TESTING) Medical Branch LIPASE 2020-01-13 20:14:00 Bala Rankin [facility] COMP. METABOLIC PANEL 2020-01-13 20:14:00 Bala Rankin [facility] ([id number]) [facility] CBC WITH DIFF 2020-01-13 20:14:00 Bala Rankin [facility] Plan of Care Planned Activity Planned Date Details Comments Source Future Scheduled 2022-01-19 HEPATITIS B VACCINES [facility] Test 13:48:12 (1 of 3 - 3-dose series) [code = HEPATITIS B VACCINES (1 of 3 - 3-dose series)] Future Scheduled 2022-01-19 COVID-19 VACCINE (#1) [facility] Test 13:48:12 [code = COVID-19 VACCINE (#1)] Future Scheduled 2022-01-19 Pneumococcal Vaccine: [facility] Test 13:48:12 Pediatrics (0 to 5 Years) and At-Risk Patients (6 to 64 Years) (1 - PCV) [code = Pneumococcal Vaccine: Pediatrics (0 to 5 Years) and At-Risk Patients (6 to 64 Years) (1 - PCV)] Future Scheduled 2022-01-19 Hepatitis C screening [facility] Test 13:48:12 (procedure) [code = 376087958] Future Scheduled 2022-01-19 COLONOSCOPY SCREENING [facility] Test 13:48:12 [code = COLONOSCOPY SCREENING] Future Scheduled 2022-01-19 SHINGLES VACCINES ([address] [facility] Hospital Test 13:48:12 of 2) [code = SHINGLES VACCINES (1 of 2)] Future Scheduled 2022-01-19 INFLUENZA VACCINE Method [facility] Hospital Test 13:48:12 [code = INFLUENZA VACCINE] Future Scheduled 2021-06-22 COVID-19 VACCINE (1) Met [facility] Hospital Test 00:46:48 [code = COVID-19 VACCINE (1)] Future Scheduled 2021-06-22 Hepatitis C screening [facility] Test 00:46:48 (procedure) [code = [id number]] Future Scheduled 2021-06-22 COLONOSCOPY SCREENING [facility] Test 00:46:48 [code = COLONOSCOPY SCREENING] Future Scheduled 2021-06-22 SHINGLES VACCINES (#1) [facility] Hospital Test 00:46:48 [code = SHINGLES VACCINES (#1)] Future Scheduled 2021-06-22 INFLUENZA VACCINE Method [facility] Hospital Test 00:46:48 [code = INFLUENZA VACCINE] Encounters Start End Encounter Admission Attending Care Care Encounter Source Date/Time Date/Time Type Type Clinicians Facility Department ID 2020-06-17 Inpatient X HIMA REDDY HERNANDEZ [id number] Univers 18:49:00 PRADEEP carreno [facility] 2021-12-26 2021-12-26 Emergency X KIZZY [facility] ERT [id number] Univers 14:37:00 19:45:00 VIVI carreno [facility] 2021-12-26 2021-12-26 Emergency [facility] [id number] Univers 14:37:00 19:45:00 Vivi HEALTH [id number] [id number] [facility] [id number] [address] ([facility]) 2020-06-30 2020-06-30 Transition Kenrick Perez [id number] 00:00:00 00:00:00 of Care Camille Donohue [id number] [place] [id number] 2020-06-30 2020-06-30 Transition Kenrick Perez [id number] Univers 00:00:00 00:00:00 of Care Camille Donohue [id number] [id number] [id number] Branch 2020-06-17 2020-06-29 [facility] Pradeep Reddy 1.2.840 [id number] 18:49:00 20:25:00 Encounter [facility] [id number] Pradeep Reddy [place] [id number] [facility] [place] [id number] [place] [address] Yi Glez (CLC) 2020-06-17 2020-06-29 [facility] Pradeep Reddy [id number] .[id number] Univers 18:49:00 20:25:00 Encounter Zhen, [facility] [id number] ity of [place] Pradeep Paramjit [id number] [facility] [place] [phone] [address] Yi Glez ([facility]) 2020-06-14 2020-06-15 Emergency Yasmin, [facility] [id number] 22:05:00 01:37:00 Katye R Health [id number] League [id number] [facility] [phone] [address] ([facility]) 2020-06-14 2020-06-15 Emergency Yasmin, [facility] [id number] [facility] 22:05:00 01:37:00 Katye R Health [id number] it y of [place] [id number] [facility] [phone] [address] ([facility]) 2020-06-14 2020-06-14 Emergency X YASMIN, [facility] ERT [id number] Univers 22:05:00 22:05:00 ARNOLDO carreno [facility] 2020-03-05 2020-03-05 Emergency DE LARSON, [facility] [id number] 9881 [place] 00:00:00 00:00:00 ALICIA 722 [facility] 2020-01-13 2020-01-13 Emergency Ebrawim, [facility] [id number] 14:40:00 18:16:00 Rania Health [id number] [place] [id number] [facility] [phone] [address] ([facility]) 2020-01-13 2020-01-13 Emergency Ebrawim, [facility] [id number] [facility] 14:40:00 18:16:00 Rania [facility] [id number] it y of [place] [id number] [facility] [phone] [address] ([facility]) 2020-01-13 2020-01-13 Emergency X BAKARI [facility] ERT [id number] Univers 14:40:00 14:40:00 BALA carreno [facility] Results Test Description Test Time Test Comments Results Result Comments Source POCT GLUCOSE (AUTOMATED) 2021-12-26 23:13:57 Test Item Value Reference Range Interpretation Comme nts POCT GLU (test code = [id number]) 275 mg/dL 70-110 H Lab Interpretation (test code = 79376-4) [facility]normal [facility]26 19:34:37 Test Item Value Reference Range Interpretation Comments POCT GLU (test code = [id number]) 383 mg/dL 70-110 H Lab Interpretation (test code = Abnormal 20429-0) [facility] COVID [id number] 23:08:00COVID DMT InterpretationInterpretation/Recommendations:Molecular NAAT Tests for Active Infection with the SARS-CoV-2 Virus:The patient has currently tested negative for the SARS-CoV-2 virus that causesCOVID-19 illness, subsequent to previously positive test results. At this time, the patient may be recovering from the infection, which is likely if any present symptoms are decreasing. In ozve-kd-pivuptip illness, the patient may be considered no longer infectious when it has been after 10 days sincesymptom onset, the patient has been afebrile for 24 hours without the use of fever-reducing medications, AND other symptoms of COVID-19 are improving. However, in patients who have been severely ill with COVID-19 or are severely immunocompromised, isolation up to 20 days after symptom onset is recommended. Asymptomatic patients are considered infectious for the first 10 days subsequent to the initialpositive test result. If the patient's symptoms - if any - are persistent/worsening, a repeat molecular NAAT test (PCR, Rapid ID Now, etc.) may be indicated. Tests for IgM and/or IgG Antibodies to the SARS-CoV-2 Virus:Testing for IgM and IgG antibodies approximately 3 weeks after illness onset will likely indicate whether the patient has produced antibodies to the SARS-CoV-2 virus. However, some patients may take longer to develop detectable antibodies, while some patients who were infected with SARS-CoV-2 may never develop antibodies. While antibodies to SARS-CoV-2 may provide some degree of immunity, at this time the strength and duration of the antibody response is unknown. Interpretation Result Comments:These interpretation comments are based upon all COVID-19 testing the patient has had at [facility], including molecular NAAT testing (more commonly known as PCR testing and Rapid ID Now testing) and antibody testing. It doesnot take into account any testing that a patient has had outside of the [facility] medical record. [facility] LABORATORY SERVICESCOVID McsmqkdQWFL-UkI-[id number] Rapid ID NOW (no units) ? ? Date ? Value ? 06/28/2020 ? Not Detected ? ? ? 06/17/2020 ? Positive (A) ? ? ? 01/13/2020 ? Not Detected ? [facility]2020-06-29 17:45:00 Test Item Value Reference Range Interpretation Comments POCT GLU (test code = 149 mg/dL 70-110 H Notifi ed Provider [id number]) Lab Interpretation (test Abnormal code = 08760-4) [facility] GLUCOSE (AUTOMATED)2020-06-29 14:43:00 Test Item Value Reference Range Interpretation Comments POCT GLU (test code = 223 mg/dL 70-110 H Notifi ed Provider [id number]) Lab Interpretation (test Abnormal code = 40183-9) [facility] GLUCOSE (AUTOMATED)2020-06-29 03:09:00 Test Item Value Reference Range Interpretation Comments POCT GLU (test code = 1629447952) 291 mg/dL 70-110 H Lab Interpretation (test code = Abnormal 02457-4) [facility] GLUCOSE (AUTOMATED)2020-06-28 23:31:00 Test Item Value Reference Range Interpretation Comments POCT GLU (test code = 8597700055) 165 mg/dL 70-110 H Lab Interpretation (test code = Abnormal 65673-8) [facility] GLUCOSE (AUTOMATED)2020-06-28 22:42:00 Test Item Value Reference Range Interpretation Comments POCT GLU (test code = 8553243152) 148 mg/dL 70-110 H Lab Interpretation (test code = Abnormal 89384-9) [facility]ID [facility]2020-06-28 21:15:00 Test Item Value Reference Range Interpretation Comments SARS-CoV-2 Rapid ID NOW Not Detected Not Detected (test code = 82090-4) ANNMARIE (test code = ANNMARIE) ID NOW COVID-19 Assay is an isothermal nucleic acid amplification test intended for the qualitative detection of nucleic acid from SARS-CoV-2 viral RNA in nasopharyngeal (SAFE AND VAULT INSTALLER) specimens. It is used under Emergency Use Authorization (EUA) by FDA. The limit of detection (LOD) of the assay is 125 Genome Equivalents/mL. A positive result is indicative of the presence of SARS-CoV-2 RNA. ?Clinical correlation with patient history and other diagnostic information is necessary to determine patient infection status. A negative (Not Detected) result does not preclude SARS-CoV-2 infection. In patients with clinical symptoms and other tests that are consistent with SARS-CoV-2 infection, negative results should be treated as presumptive negative and a new specimen should be tested with alternative PCR molecular test. Invalid: Please collect a new specimen for repeat patient testing if clinically indicated. Lab Interpretation Normal (test code = 88413-7) [facility] GLUCOSE (AUTOMATED)2020-06-28 18:22:00 Test Item Value Reference Range Interpretation Comments POCT GLU (test code = 4141897246) 287 mg/dL 70-110 H Lab Interpretation (test code = Abnormal 51475-7) [facility] GLUCOSE (AUTOMATED)2020-06-28 14:17:00 Test Item Value Reference Range Interpretation Comments POCT GLU (test code = 0089890705) >600 70-110 HH Lab Interpretation (test code = Abnormal 38053-4) [facility] GLUCOSE (AUTOMATED)2020-06-28 13:48:00 Test Item Value Reference Range Interpretation Comments POCT GLU (test code = 1815565074) 348 mg/dL 70-110 H Lab Interpretation (test code = Abnormal 28905-2) [facility] GLUCOSE (AUTOMATED)2020-06-28 03:29:00 Test Item Value Reference Range Interpretation Comments POCT GLU (test code = 3405336492) 268 mg/dL 70-110 H Lab Interpretation (test code = Abnormal 95092-9) [facility] GLUCOSE (AUTOMATED)2020-06-27 21:52:00 Test Item Value Reference Range Interpretation Comments POCT GLU (test code = 6764523116) 210 mg/dL 70-110 H Lab Interpretation (test code = Abnormal 65283-7) [facility] GLUCOSE (AUTOMATED)2020-06-27 17:53:00 Test Item Value Reference Range Interpretation Comments POCT GLU (test code = 4724285564) 329 mg/dL 70-110 H Lab Interpretation (test code = Abnormal 98617-6) [facility] GLUCOSE (AUTOMATED)2020-06-27 14:20:00 Test Item Value Reference Range Interpretation Comments POCT GLU (test code = 5039782890) 369 mg/dL 70-110 H Lab Interpretation (test code = Abnormal 83564-0) [facility] GLUCOSE (AUTOMATED)2020-06-27 05:44:00 Test Item Value Reference Range Interpretation Comments POCT GLU (test code = 4277978743) 284 mg/dL 70-110 H Lab Interpretation (test code = Abnormal 43280-6) [facility] GLUCOSE (AUTOMATED)2020-06-27 02:24:00 Test Item Value Reference Range Interpretation Comments POCT GLU (test code = 5796684378) 306 mg/dL 70-110 H Lab Interpretation (test code = Abnormal 62753-1) [facility] GLUCOSE (AUTOMATED)2020-06-26 23:54:00 Test Item Value Reference Range Interpretation Comments POCT GLU (test code = 2401307396) 238 mg/dL 70-110 H Lab Interpretation (test code = Abnormal 48781-5) [facility] [id number] 22:22:44 Mild to moderate bilateral pneumonia, improved RL: [id number]: [id number] Ordering Physician: STEFFANY BEAN HISTORY: SOB ? TECHNIQUE: Single frontal view of the chest. COMPARISON: 06/17/2020 FINDINGS:Jevh-ko-drwqwdec scattered lung opacities arepresent, left greater thanright, improved. No pneumothorax. No large effusion. Cardiac silhouette isunremarkable. [facility], Radiant Results Inft User - 06/26/2020 4:23 PM CSTOrdering Physician: STEFFANY BEANHISTORY: SOB TECHNIQUE: Single frontal view of the chest. COMPARISON: 06/17/2020FINDINGS:Pyou-ir-peesrqzm scattered lung opacities are present, left greater thanright, improved. No pneumothorax. No large effusion. Cardiac silhouette isunremarkable.IMPRESSION Mild to moderate bilateral pneumonia, improvedRL: 9332AF: [id number] signed by Jose Antonio Harmon MD at 06/26/2020 4:22 PMUnD[facility] CenterPONM [facility] (AUTOMATED)2020-06-26 18:42:00 Test Item Value Reference Range Interpretation Comments POCT GLU (test code = 5215450282) 167 mg/dL 70-110 H Lab Interpretation (test code = Abnormal 66397-9) [facility] WITH [id number] 18:41:00 Test Item Value Reference Range Interpretation Comments WBC (test code = See_Comment [Automated 7690-2) message] The sy stem which generated this result transmitted reference range : 4.20 - 10.70 10*3/?L. The reference range was not used to interpret this result as normal/abnormal . RBC (test code = See_Comment [Automated 939-8) message] The sy stem which generated this result transmitted reference range : 4.26 - 5.52 10*6/?L. The reference range was not used to interpret this result as normal/abnormal . HGB (test code = 13.4 g/dL 12.2-16.4 718-7) HCT (test code = 39.0 % 38.4-49.3 4544-3) MCV (test code = 85.0 fL 81.7-95.6 787-2) MCH (test code = 29.2 pg 26.1-32.7 785-6) MCHC (test code = 34.4 g/dL 31.2-35 786-4) RDW-SD (test code = 39.1 fL 38.5-51.6 63170-5) RDW-CV (test code = 12.9 % 12.1-15.4 788-0) PLT (test code = See_Comment [Automated 777-3) message] The sy stem which generated this result transmitted reference range : 150 - 328 10*3/ ?L. The reference r vandana was not used to interpret this result as normal/abnormal . MPV (test code = 10.1 fL 9.8-13 15504-2) NRBC/100 WBC (test See_Comment [Automat ed code = 0690198959) message] The system which generated this result transmitted reference range : 0.0 - 10.0 /100 WBCs. The refer ence range was not u sed to interpret th is result as normal/abnormal . NRBC x10^3 (test code <0.01 See_Comment [Auto mated = 7223620707) message] The s ystem which generated this result transmitted reference range : 10*3/?L. The reference range was not used to interpret this result as normal/abnormal . GRAN MAT (NEUT) % 69.0 % (test code = 770-8) IMM GRAN % (test code 2.80 % = 4734218479) LYMPH % (test code = 16.0 % 736-9) MONO % (test code = 12.0 % 5905-5) EOS % (test code = 0.1 % 713-8) BASO % (test code = 0.1 % 706-2) GRAN MAT x10^3(ANC) 6.24 10*3/uL 1.99-6.95 (test code = 0497006056) IMM GRAN x10^3 (test 0.25 10*3/uL 0-0.06 H code = 1435603320) LYMPH x10^3 (test code 1.45 10*3/uL 1.09-3.23 = 731-0) MONO x10^3 (test code 1.09 10*3/uL 0.36-1.02 H = 742-7) EOS x10^3 (test code = <0.03 0.06-0.53 L 711-2) BASO x10^3 (test code <0.03 0.01-0.09 = 704-7) BASO STIPPLING (test Present A code = 703-9) TOXIC CHANGES (test Present A code = 803-7) Lab Interpretation Abnormal (test code = 48834-8) [facility]. METABOLIC PANEL (04196)2020-06-26 18:36:00 Test Item Value Reference Range Interpretation Comments NA (test code = 137 mmol/L 135-145 2779365833) K (test code = 4.2 mmol/L 3.5-5 8738088929) CL (test code = 95 mmol/L 98-108 L 2266033900) CO2 TOTAL (test code = 36 mmol/L 23-31 H 9363733731) AGAP (test code = 2-16 1017489829) BUN (test code = 34 mg/dL 7-23 H 2657376669) GLUCOSE (test code = 189 mg/dL 70-110 H 8264006542) CREATININE (test code = 0.68 mg/dL 0.6-1.25 9424654265) TOTAL BILI (test code = 0.3 mg/dL 0.1-1.1 3053395116) CALCIUM (test code = 9.2 mg/dL 8.6-10.6 5871632464) T PROTEIN (test code = 6.5 g/dL 6.3-8.2 7867986744) ALBUMIN (test code = 3.3 g/dL 3.5-5 L 4689802256) ALK PHOS (test code = 78 U/L 34-122 7100200320) ALTv (test code = 26 U/L 5-50 1742-6) AST(SGOT) (test code = 20 U/L 13-40 0789540849) eGFR Calculation mL/min/1.73m2 (Non-) (test code = 7705357554) eGFR Calculation mL/min/1.73m2 () (test code = 5264880748) ANNMARIE (test code = ANNMARIE) Association of Glomerular Filtration Rate (GFR) and Staging of Kidney Disease* + --+ --+ ------+| GFR (mL/min/1.73 m2) ?| With Kidney Damage ?| ?Without Kidney Damage+ --------+ --------+ +| ?>90 ?| ?Stage one ?| ? Normal ?+ ---+ ---+ -------+| ?60-89 ?| ?Stage two ?| ? Decreased GFR ? + --+ --+ ------+| ?30-59 ?| ?Stage three ?| ? Stage three ? + --+ --+ ------+| ?15-29 ?| ?Stage four ? | ? Stage four ?+ ---+ ---+ -------+| ?<15 (or dialysis) ? ?| ?Stage five ? | ? Stage five ?+ ---+ ---+ -------+ *Each stage assumes the associated GFR level has been in effect for at least three months. ?Stages 1 to 5, with or without kidney disease, indicate chronic kidney disease. Notes: Determination of stages one and two (with eGFR >59mL/min/1.73 m2) requires estimation of kidney damage for at least three months as defined by structural or functional abnormalities of the kidney, manifested by either:Pathological abnormalities or Markers of kidney damage (including abnormalities in the composition of the blood or urine or abnormalities in imaging tests). Lab Interpretation Abnormal (test code = 20836-3) [facility] GLUCOSE (AUTOMATED)2020-06-26 14:41:00 Test Item Value Reference Range Interpretation Comments POCT GLU (test code = 6093844487) 286 mg/dL 70-110 H Lab Interpretation (test code = Abnormal 98774-8) [facility] GLUCOSE (AUTOMATED)2020-06-26 06:53:00 Test Item Value Reference Range Interpretation Comments POCT GLU (test code = 9217791729) 250 mg/dL 70-110 H Lab Interpretation (test code = Abnormal 17373-3) [facility] GLUCOSE (AUTOMATED)2020-06-26 02:45:00 Test Item Value Reference Range Interpretation Comments POCT GLU (test code = 7556196102) 310 mg/dL 70-110 H Lab Interpretation (test code = Abnormal 46581-8) [facility] GLUCOSE (AUTOMATED)2020-06-26 00:20:00 Test Item Value Reference Range Interpretation Comments POCT GLU (test code = 5154061944) 208 mg/dL 70-110 H Lab Interpretation (test code = Abnormal 12421-7) [facility] GLUCOSE (AUTOMATED)2020-06-25 18:13:00 Test Item Value Reference Range Interpretation Comments POCT GLU (test code = 9665771292) 332 mg/dL 70-110 H Lab Interpretation (test code = Abnormal 72447-9) [facility] GLUCOSE (AUTOMATED)2020-06-25 14:54:00 Test Item Value Reference Range Interpretation Comments POCT GLU (test code = 3325073473) 243 mg/dL 70-110 H Lab Interpretation (test code = Abnormal 42497-4) [facility] GLUCOSE (AUTOMATED)2020-06-25 04:28:00 Test Item Value Reference Range Interpretation Comments POCT GLU (test code = 3311266405) 342 mg/dL 70-110 H Lab Interpretation (test code = Abnormal 23232-3) [facility] GLUCOSE (AUTOMATED)2020-06-25 01:56:00 Test Item Value Reference Range Interpretation Comments POCT GLU (test code = 8935120770) 260 mg/dL 70-110 H Lab Interpretation (test code = Abnormal 82351-8) [facility] GLUCOSE (AUTOMATED)2020-06-25 00:01:00 Test Item Value Reference Range Interpretation Comments POCT GLU (test code = 2569411020) 135 mg/dL 70-110 H Lab Interpretation (test code = Abnormal 68376-8) [facility] GLUCOSE (AUTOMATED)2020-06-24 17:49:00 Test Item Value Reference Range Interpretation Comments POCT GLU (test code = 7279848862) 250 mg/dL 70-110 H Lab Interpretation (test code = Abnormal 55039-2) [facility] GLUCOSE (AUTOMATED)2020-06-24 14:25:00 Test Item Value Reference Range Interpretation Comments POCT GLU (test code = 6873490560) 250 mg/dL 70-110 H Lab Interpretation (test code = Abnormal 08024-7) [facility] GLUCOSE (AUTOMATED)2020-06-24 02:52:00 Test Item Value Reference Range Interpretation Comments POCT GLU (test code = 2569900355) 161 mg/dL 70-110 H Lab Interpretation (test code = Abnormal 78705-2) [facility] GLUCOSE (AUTOMATED)2020-06-23 23:35:00 Test Item Value Reference Range Interpretation Comments POCT GLU (test code = 3160150213) 291 mg/dL 70-110 H Lab Interpretation (test code = Abnormal 26021-1) [facility] GLUCOSE (AUTOMATED)2020-06-23 17:54:00 Test Item Value Reference Range Interpretation Comments POCT GLU (test code = 9261780626) 258 mg/dL 70-110 H Lab Interpretation (test code = Abnormal 98560-2) [facility] [id number] 17:12:14EXAM: XR CHEST 1 VW HISTORY: sob COMPARISON: None. FINDINGS: Irregular infiltrations are present throughout both lungs, more marked onthe left and in both lung bases. The changes are more pronounced than notedon the most recent previous chest x- ray. The densities in the lungs are dueto pneumonia. The heart and great vessels are normal. ? [facility], Radiant Results Inft User - 06/23/2020 11:13 AM CSTEXAM:XR CHEST 1 VWHISTORY: sob COMPARISON: None.FINDINGS:Irregular infiltrations are present throughout both lungs, more marked onthe left and in both lung bases. The changes are more pronounced than notedon the most recent previous chest x- ray. The densities in the lungs are dueto pneumonia. The heart andgreat vessels are normal.[facility] GLUCOSE (AUTOMATED)2020-06-23 14:35:00 Test Item Value Reference Range Interpretation Comments POCT GLU (test code = 9934472836) 182 mg/dL 70-110 H Lab Interpretation (test code = Abnormal 97310-3) [facility] [id number] 14:01:00 Test Item Value Reference Range Interpretation Comments Blood Culture-Aerobic No organisms No growth Previo us (test code = 51075-8) isolated prelim inary verified result was Culture In Progress on 06/18/2020 at 11 01 CSTPrevious preliminary verified result was No growth a t 24 hours on 06/19/2020 at 08 01 CSTPrevious preliminary verified result was No growth a t 48 hours on 06/20/2020 at 08 01 CSTPrevious preliminary verified result was No growth a t 72 hours on 06/21/2020 at 080 1 CLINICAL EDUCATION ACADEMIC COORDINATOR Blood No organisms No growth Previous Culture-Anaerobic isolated preliminar y (test code = 65032-7) verifi ed result was Culture In Progress on 06/18/2020 at 11 01 CSTPrevious preliminary verified result was No growth a t 24 hours on 06/19/2020 at 08 01 CSTPrevious preliminary verified result was No growth a t 48 hours on 06/20/2020 at 08 01 CSTPrevious preliminary verified result was No growth a t 72 hours on 06/21/2020 at 080 1 CLINICAL EDUCATION ACADEMIC COORDINATOR Lab Interpretation Normal (test code = 54088-4) [facility] [id number] 14:01:00 Test Item Value Reference Range Interpretation Comments Blood Culture-Aerobic No organisms No growth Previo us (test code = 07530-4) isolated prelim inary verified result was Culture In Progress on 06/18/2020 at 11 01 CSTPrevious preliminary verified result was No growth a t 24 hours on 06/19/2020 at 08 01 CSTPrevious preliminary verified result was No growth a t 48 hours on 06/20/2020 at 08 01 CSTPrevious preliminary verified result was No growth a t 72 hours on 06/21/2020 at 080 1 CLINICAL EDUCATION ACADEMIC COORDINATOR Blood No organisms No growth Previous Culture-Anaerobic isolated preliminar y (test code = 36045-9) verifi ed result was Culture In Progress on 06/18/2020 at 11 01 CSTPrevious preliminary verified result was No growth a t 24 hours on 06/19/2020 at 08 01 CSTPrevious preliminary verified result was No growth a t 48 hours on 06/20/2020 at 08 01 CSTPrevious preliminary verified result was No growth a t 72 hours on 06/21/2020 at 080 1 CLINICAL EDUCATION ACADEMIC COORDINATOR Lab Interpretation Normal (test code = 67912-2) [facility] GLUCOSE (AUTOMATED)2020-06-23 02:23:00 Test Item Value Reference Range Interpretation Comments POCT GLU (test code = 2277068182) 219 mg/dL 70-110 H Lab Interpretation (test code = Abnormal 73832-5) [facility] GLUCOSE (AUTOMATED)2020-06-22 23:49:00 Test Item Value Reference Range Interpretation Comments POCT GLU (test code = 8551052994) 234 mg/dL 70-110 H Lab Interpretation (test code = Abnormal 21916-7) [facility] GLUCOSE (AUTOMATED)2020-06-22 17:57:00 Test Item Value Reference Range Interpretation Comments POCT GLU (test code = 9602395350) 285 mg/dL 70-110 H Lab Interpretation (test code = Abnormal 27160-6) [facility] GLUCOSE (AUTOMATED)2020-06-22 14:22:00 Test Item Value Reference Range Interpretation Comments POCT GLU (test code = 6721700387) 197 mg/dL 70-110 H Lab Interpretation (test code = Abnormal 75701-2) [facility] GLUCOSE (AUTOMATED)2020-06-22 02:10:00 Test Item Value Reference Range Interpretation Comments POCT GLU (test code = 3321503346) 135 mg/dL 70-110 H Lab Interpretation (test code = Abnormal 11549-8) [facility] GLUCOSE (AUTOMATED)2020-06-21 23:11:00 Test Item Value Reference Range Interpretation Comments POCT GLU (test code = 5635345050) 190 mg/dL 70-110 H Lab Interpretation (test code = Abnormal 09497-4) [facility] 20:34:00 Test Item Value Reference Range Interpretation Comments IL6 (test code = 46.8 pg/mL [place] [address]-3) INFORMATION: CytokinesResult s are used to underst and the pathophysiology of immune, infecti ous, or inflammatory disorders, or m ay be used for resear ch purposes. Test developed and characteristics determined by [facility]. S ee Compliance Stat ement B: 1EQ/CSP erforme d By: [employer] [place] [id number] Director: Lesly Dolan MD [Aut omated message] The sy stem which generated this result transmit patrick reference range : <=2.0. The refe rence range was not u sed to interpret this result as normal/abnor mal. Lab Interpretation Abnormal (test code = 35015-0) [facility] GLUCOSE (AUTOMATED)2020-06-21 17:45:00 Test Item Value Reference Range Interpretation Comments POCT GLU (test code = 7097115792) 216 mg/dL 70-110 H Lab Interpretation (test code = Abnormal 82502-1) [facility] LakeD-[id number] 16:43:00 Test Item Value Reference Interpretation Comments Range D-DIMER (test code = See_Comment H [Autom ated 8325760741) message] The system which generated this result transmitted reference range : <0.50 ?g/mL (FEU). The reference range was not used to interpret this result as normal/abnormal . ANNMARIE (test code = This test may be ANNMARIE) used in conjunction with a clinical pretest probability (PTP) assessment model to exclude venous thromboembolism (VTE) in patients suspected of deep venous thrombosis (DVT) and pulmonary embolism (PE) A D-Dimer value less than 0.50 ?g/ml (FEU) has a negative predicative value of 96 to 100% (95% CI)and 97 to 100% (95% CI) as an aid in the diagnosis of deep vein thrombosis (DVT) and pulmonary embolism when there is low or moderate pretest probability of PE or DVT. D-Dimer values are expressed in initial fibrinogen equivalent units (FEU)" The assay results should be used with other information, including the clinical context, in forming a diagnosis. Lab Interpretation Abnormal (test code = 73756-7) [facility] GLUCOSE (AUTOMATED)2020-06-21 15:33:00 Test Item Value Reference Range Interpretation Comments POCT GLU (test code = 5700522872) 183 mg/dL 70-110 H Lab Interpretation (test code = Abnormal 67667-1) [facility] GLUCOSE (AUTOMATED)2020-06-21 14:06:00 Test Item Value Reference Range Interpretation Comments POCT GLU (test code = 4958947845) 144 mg/dL 70-110 H Lab Interpretation (test code = Abnormal 32979-8) [facility] GLUCOSE (AUTOMATED)2020-06-21 03:38:00 Test Item Value Reference Range Interpretation Comments POCT GLU (test code = 4020469814) 153 mg/dL 70-110 H Lab Interpretation (test code = Abnormal 70584-7) [facility] GLUCOSE (AUTOMATED)2020-06-20 22:48:00 Test Item Value Reference Range Interpretation Comments POCT GLU (test code = 6167608990) 158 mg/dL 70-110 H Lab Interpretation (test code = Abnormal 88056-3) [facility] GLUCOSE (AUTOMATED)2020-06-20 18:19:00 Test Item Value Reference Range Interpretation Comments POCT GLU (test code = 0072026483) 154 mg/dL 70-110 H Lab Interpretation (test code = Abnormal 66293-5) [facility] GLUCOSE (AUTOMATED)2020-06-20 14:08:00 Test Item Value Reference Range Interpretation Comments POCT GLU (test code = 4539949999) 202 mg/dL 70-110 H Lab Interpretation (test code = Abnormal 48731-8) [facility] GLUCOSE (AUTOMATED)2020-06-20 02:24:00 Test Item Value Reference Range Interpretation Comments POCT GLU (test code = 3775200663) 296 mg/dL 70-110 H Lab Interpretation (test code = Abnormal 77289-3) [facility] GLUCOSE (AUTOMATED)2020-06-19 23:47:00 Test Item Value Reference Range Interpretation Comments POCT GLU (test code = 5836082460) 226 mg/dL 70-110 H Lab Interpretation (test code = Abnormal 34329-8) [facility] GLUCOSE (AUTOMATED)2020-06-19 17:54:00 Test Item Value Reference Range Interpretation Comments POCT GLU (test code = 2618003507) 312 mg/dL 70-110 H Lab Interpretation (test code = Abnormal 55155-7) [id number] 15:49[facility]00 Test Item Value Reference Range Interpretation Comments TROPONIN I (test 0.005 ng/mL See_Comment [Automated code = 9239995077) message] The system which generated this result transmitted reference range : <=0.034. The reference range was not used to interpret this result as normal/abnormal . ANNMARIE (test code = Equal or Less than ANNMARIE) 0.034 ng/ml---Normal ?Note: Cardiac troponin begins to rise 3-4 hours after the onset of ischemia. Repeat in 4-6 hours if the sample was drawn within 3-4 hours of the onset of the symptom and found normal. Between 0.035 and 0.120 ng/mL--- Borderline. Questionable myocardial injury or necrosis ? ?Note: Serial measurement may be necessary to confirm or exclude the diagnosis of myocardial injury or necrosis; Clinical correlation (symptoms, EKGs, imaging studies, and others) required; Repeat in 4-6 hours if clinically indicated. ? Equal or Higher than 0.121 ng/mL---Abnormal. Myocardial Injury or Necrosis Likely ? Biotin has been reported to cause a negative bias, interpret results relative to patient's use of biotin. ? Lab Interpretation Normal (test code = 49761-2) [facility]2020-06-19 15:32:00 Test Item Value Reference Range Interpretation Comments POCT GLU (test code = 8478939521) 312 mg/dL 70-110 H Lab Interpretation (test code = Abnormal 48481-4) [facility] (ALB,T.PRO,BILI T,BU/BC,ALT,AST,ALK PHOS)2020-06-19 12:12:00 Test Item Value Reference Range Interpretation Comments TOTAL BILI (test code = 8872114019) 0.3 mg/dL 0.1-1.1 BILI UNCON (test code = 3571350004) 0.2 mg/dL 0.1-1.1 BILI CONJ (test code = 6076976504) 0.0 mg/dL 0-0.3 T PROTEIN (test code = 8633019667) 5.8 g/dL 6.3-8.2 L ALBUMIN (test code = 0519203083) 2.8 g/dL 3.5-5 L ALK PHOS (test code = 5431135098) 54 U/L 34-122 ALTv (test code = 1742-6) 20 U/L 5-50 AST(SGOT) (test code = 5560238691) 35 U/L 13-40 Lab Interpretation (test code = Abnormal 31169-4) [facility] ONLY COVID [id number] 03:38:00COVID DMT InterpretationInterpretation/Recommendations: Molecular NAAT Tests for Active Infection with the SARS-CoV-2 Virus: This result indicates a second test was positive, subsequent to an initial negative test for the SARS-CoV-2 virus that causes COVID-19 illness. This result indicates that the patient has been infected with the SARS-CoV-2 virus. The patient should be considered infectious and able to transmit the virus within the first 10 days after symptom onset in magi-az-xopgzbfv illness andwithin the first 20 days after symptom onset in critical illness and/or severe immunocompromise. Asym ptomatic patients are considered infectious for the first 10 days subsequent to the initial positivetest result. From the onset of symptoms, if any, this result is likely to remain positive for 2 to 4weeks. Tests for IgM and/or IgG Antibodies to SARS-CoV-2 Virus: Testing for IgM and IgG antibodies 1-3 weeks after illness onset will indicate whether the patient has produced antibodies to the virus. At this time, it is not known if the production of antibodies - specifically IgG antibodies - indicates whether the patient is immune to future infections with the SARS-CoV-2 virus. Interpretation Result Comments:These interpretation comments are based upon all COVID-19 testing the patient has had at [facility], including molecular NAAT testing (more commonly known as PCR testing and Rapid ID Now testing) and antibody testing. It doesnot take into account any testing that a patient has had outside of the [facility] medical record. [facility] LABORATORY SERVICESCOVID HuzrexwTTOD-OyX-5 Rapid ID NOW (no units) ? ? Date ? Value ? 06/17/2020 ? Positive (A) ? ? ? 01/13/2020 ? Not Detected ? [facility] 2020-06-19 02:07:00 Test Item Value Reference Range Interpretation Comments POCT GLU (test code = 0751953853) 296 mg/dL 70-110 H Lab Interpretation (test code = Abnormal 24328-0) [facility] GLUCOSE (AUTOMATED)2020-06-18 22:56:00 Test Item Value Reference Range Interpretation Comments POCT GLU (test code = 6900116901) 165 mg/dL 70-110 H Lab Interpretation (test code = Abnormal 28802-5) [facility]2020-06-18 17:34:00 Test Item Value Reference Range Interpretation Comments POCT GLU (test code = 8423960081) 237 mg/dL 70-110 H Lab Interpretation (test code = Abnormal 80935-2) [facility] LakeC-REACTIVE [id number] 17:15:00 Test Item Value Reference Range Interpretation Comments CRP (test code = 0251790889) 22.0 mg/dL <0.8 H Lab Interpretation (test code = Abnormal 64015-9) [facility] LakeFERRITIN [id number] 11:11:00 Test Item Value Reference Range Interpretation Comments FERRITIN (test code = 449.0 ng/mL 18-464 8352841786) ANNMARIE (test code = ANNMARIE) Biotin has been reported to cause a negative bias, interpret results relative to patient's use of biotin. Lab Interpretation (test Normal code = 01139-3) [facility] LakeCBC with [id number] 09:41:00 Test Item Value Reference Range Interpretation Comments WBC (test code = See_Comment [Automated 6690-2) message] The sy stem which generated this result transmitted reference range : 4.20 - 10.70 10*3/?L. The reference range was not used to interpret this result as normal/abnormal . RBC (test code = See_Comment [Automated 389-8) message] The sy stem which generated this result transmitted reference range : 4.26 - 5.52 10*6/?L. The reference range was not used to interpret this result as normal/abnormal . HGB (test code = 13.0 g/dL 12.2-16.4 718-7) HCT (test code = 38.9 % 38.4-49.3 4544-3) MCV (test code = 87.0 fL 81.7-95.6 787-2) MCH (test code = 29.1 pg 26.1-32.7 785-6) MCHC (test code = 33.4 g/dL 31.2-35 786-4) RDW-SD (test code = 39.4 fL 38.5-51.6 24491-3) RDW-CV (test code = 12.4 % 12.1-15.4 788-0) PLT (test code = See_Comment [Automated 777-3) message] The sy stem which generated this result transmitted reference range : 150 - 328 10*3/ ?L. The reference r vandana was not used to interpret this result as normal/abnormal . MPV (test code = 11.3 fL 9.8-13 88381-8) NRBC/100 WBC (test See_Comment [Automat ed code = 5790942704) message] The system which generated this result transmitted reference range : 0.0 - 10.0 /100 WBCs. The refer ence range was not u sed to interpret th is result as normal/abnormal . NRBC x10^3 (test code <0.01 See_Comment [Auto mated = 1479919725) message] The s ystem which generated this result transmitted reference range : 10*3/?L. The reference range was not used to interpret this result as normal/abnormal . GRAN MAT (NEUT) % 72.7 % (test code = 770-8) IMM GRAN % (test code 0.20 % = 1096068849) LYMPH % (test code = 22.5 % 736-9) MONO % (test code = 4.3 % 5905-5) EOS % (test code = 0.0 % 713-8) BASO % (test code = 0.3 % 706-2) GRAN MAT x10^3(ANC) 4.27 10*3/uL 1.99-6.95 (test code = 7300726075) IMM GRAN x10^3 (test <0.03 0-0.06 code = 6751594251) LYMPH x10^3 (test code 1.32 10*3/uL 1.09-3.23 = 731-0) MONO x10^3 (test code 0.25 10*3/uL 0.36-1.02 L = 742-7) EOS x10^3 (test code = <0.03 0.06-0.53 L 711-2) BASO x10^3 (test code <0.03 0.01-0.09 = 704-7) GISELE CELLS (test code 2+ See_Comment A [Auto mated = 7790-4) message] The sy stem which generated this result transmitted reference range : (none). The reference range was not used to interpret this result as normal/abnormal . REACT LYMPHS (test Rare code = 6474324215) Lab Interpretation Abnormal (test code = 63273-8) [facility] Metabolic Panel (NA, K, CL, CO2, GLUCOSE, BUN, CREATININE, CA)2020-06-18 09:33:00 Test Item Value Reference Range Interpretation Comments NA (test code = 139 mmol/L 135-145 4606533930) K (test code = 4.1 mmol/L 3.5-5 6557629296) CL (test code = 103 mmol/L 98-108 6343287937) CO2 TOTAL (test code = 30 mmol/L 23-31 1753398822) AGAP (test code = 2-16 8014005394) BUN (test code = 17 mg/dL 7-23 5744516040) GLUCOSE (test code = 203 mg/dL 70-110 H 0207702672) CREATININE (test code = 0.75 mg/dL 0.6-1.25 1757120926) CALCIUM (test code = 8.2 mg/dL 8.6-10.6 L 7409057423) eGFR Calculation mL/min/1.73m2 (Non-) (test code = 1862239114) eGFR Calculation mL/min/1.73m2 () (test code = 5711083279) ANNMARIE (test code = ANNMARIE) Association of Glomerular Filtration Rate (GFR) and Staging of Kidney Disease* + --+ --+ ------+| GFR (mL/min/1.73 m2) ?| With Kidney Damage ?| ?Without Kidney Damage+ --------+ --------+ +| ?>90 ?| ?Stage one ?| ? Normal ?+ ---+ ---+ -------+| ?60-89 ?| ?Stage two ?| ? Decreased GFR ? + --+ --+ ------+| ?30-59 ?| ?Stage three ?| ? Stage three ? + --+ --+ ------+| ?15-29 ?| ?Stage four ? | ? Stage four ?+ ---+ ---+ -------+| ?<15 (or dialysis) ? ?| ?Stage five ? | ? Stage five ?+ ---+ ---+ -------+ *Each stage assumes the associated GFR level has been in effect for at least three months. ?Stages 1 to 5, with or without kidney disease, indicate chronic kidney disease. Notes: Determination of stages one and two (with eGFR >59mL/min/1.73 m2) requires estimation of kidney damage for at least three months as defined by structural or functional abnormalities of the kidney, manifested by either:Pathological abnormalities or Markers of kidney damage (including abnormalities in the composition of the blood or urine or abnormalities in imaging tests). Lab Interpretation Abnormal (test code = 85334-3) [facility] LakeMagnesium [id number] 09:33:00 Test Item Value Reference Range Interpretation Comments MAGNESIUM (test code = 2989627671) 1.7 mg/dL 1.7-2.4 Lab Interpretation (test code = Normal 62393-2) [facility] LakePhosphorus [id number] 09:33:00 Test Item Value Reference Range Interpretation Comments PHOSPHORUS (test code = 7783404921) 2.6 mg/dL 2.5-5 Lab Interpretation (test code = Normal 01041-1) [facility] LakeLACTATE [id number] 09:28:00 Test Item Value Reference Range Interpretation Comments LDH (test code = 5684826512) 715 U/L 300-600 H Lab Interpretation (test code = Abnormal 09773-9) [facility] LakeGLYCOSYLATED HEMOGLOBIN (A1C)2020-06-18 09:26:00 Test Item Value Reference Range Interpretation Comments HGB A1C (test code = 4548-4) 12.6 % 4-6 H Lab Interpretation (test code = Abnormal 83534-3) [facility] LakePONM GLUCOSE (AUTOMATED)2020-06-18 03:44:00 Test Item Value Reference Range Interpretation Comments POCT GLU (test code = 9630511139) 292 mg/dL 70-110 H Lab Interpretation (test code = Abnormal 99332-7) [facility] GLUCOSE (AUTOMATED)2020-06-18 02:54:00 Test Item Value Reference Range Interpretation Comments POCT GLU (test code = 8692470382) 357 mg/dL 70-110 H Lab Interpretation (test code = Abnormal 08459-9) [facility] LakeCT CHEST PULMONARY [id number] 02:53:42Impression: 1. Extensive bilateral airspace disease, correlating with the givenclinical history of COVID-19 pneumonia.2. Negative for pulmonary embolus.3. Mild mediastinal and bilateral hilar lymphadenopathy, likely reactive.4. Hepatic steatosis. RL: 460 End of Report Ordering Physician: PRADEEP REDDY Clinical history: COVID-19. Hypoxia. Comparison: None Technique: CT angiography of the chest was performed with intravenouscontrast. Axial source images, MPRS, and MIPS were reviewed. Thisexamination was performed according to ALARA lavonne brittani. Findings: No acute filling defects are seen within the pulmonary arterial tree tosuggest pulmonary embolus. There is no thoracic aortic aneurysm ordissection. Heart size is at the upper limitsof normal. No pericardialeffusion is evident. There are extensive ground glass opacities and small regions ofconsolidation throughout both lungs. No pleural effusions are evident.There are mildly enlarged mediastinal and bilateral hilar lymph nodes. Hepatic steatosis is present. Moderate colonic fecalretention is present.There are degenerative changes of the spine. No acute bony abnormalitiesare evident. [facility], Radiant Results Inft User - 06/17/2020 8:54 PM CSTOrdering Physician: PRADEEP MALAGONUClinical history: COVID-19. Hypoxia.Comparison: NoneTechnique: CT angiography of the chest was performedwith intravenouscontrast. Axial source images, MPRS, and MIPS were reviewed. Thisexamination was performed according to ALARA principles.Findings:No acute filling defects are seen within the pulmonary arterial tree tosuggest pulmonary embolus. There is no thoracic aortic aneurysm ordissection. Heart size is at the upper limits of normal. No pericardialeffusion is evident.There are extensive ground glass opacities and small regions ofconsolidation throughout both lungs. No pleural effusions are evident.There are mildly enlarged mediastinal and bilateral hilar lymph nodes.Hepatic steatosis is present. Moderate colonic fecal retention is present.There are degenerative changes of the spine. No acute bony abnormalitiesare evident.IMPRESSIONImpression:1. Extensive bilateral airspace disease, correlating with the givenclinical history of COVID-19 pneumonia.2. Negative for pulmonary embolus.3. Mild mediastinal and bilateral hilar lymphadenopathy, likely reactive.4. Hepatic steatosis.RL: 460End of Report [facility] ([facility] NOW RAPID TESTING)2020-06-18 02:51:00 Test Item Value Reference Range Interpretation Comments SARS-CoV-2 Rapid ID NOW Positive Not Detected A (test code = 92523-6) ANNMARIE (test code = ANNMARIE) ID NOW COVID-19 Assay is an isothermal nucleic acid amplification test intended for the qualitative detection of nucleic acid from SARS-CoV-2 viral RNA in nasopharyngeal (SAFE [employer] VAULT INST[employer]ER) specimens. It is used under Emergency Use Authorization (EUA) by FDA. The limit of detection (LOD) of the assay is 125 Genome Equivalents/mL. A positive result is indicative of the presence of SARS-CoV-2 RNA. ?Clinical correlation with patient history and other diagnostic information is necessary to determine patient infection status. A negative (Not Detected) result does not preclude SARS-CoV-2 infection. In patients with clinical symptoms and other tests that are consistent with SARS-CoV-2 infection, negative results should be treated as presumptive negative and a new specimen should be tested with alternative PCR molecular test. Invalid: Please collect a new specimen for repeat patient testing if clinically indicated. Lab Interpretation Abnormal (test code = 19667-7) [facility] LakeABG+COOX+NA+K+GLU+CA2+2020-06-18 02:34:00 Test Item Value Reference Range Interpretation Comments PH (test code = 2) 7.35-7.45 PCO2 (test code = See_Comment L [Automate d message] 4263222076) The system cube19 generated this result transmit patrick reference range : 35 - 45 mmHg. The reference range was not used to interpret this result as normal/abnormal . PO2 (test code = See_Comment L [Automated message] 5088593322) The system cube19 generated this result transmit patrick reference range : 80 - 100 mmHg. The reference range was not used to interpret this result as normal/abnormal . HCO3 (test code = See_Comment [Automate d message] 2240043064) The system whic h generated this result transmit patrick reference range : 22 - 26 mEq/L. The reference range was not used to interpret this result as normal/abnormal . BE (test code = See_Comment [Automated message] 9958745348) The system [employer] generated this result transmit patrick reference range : -3.0 - 3.0 mEq/ L. The reference r vandana was not used to interpret this result as normal/abnormal . THB (test code = 12.5 g/dL 13.5-18 L 1693778978) %O2HB (test code = 90.9 % 94-99 L 3580427707) %COHB ART (test code = 0.5 % 0-1.5 2660169630) %METHB ART (test code = 0.0 % 0.4-1.5 L 7665626073) VOL%O2 ART (test code = 16.0 % 15-23 3347187060) NA (test code = 131 mmol/L 135-145 L 5744908284) K+ (test code = 4.2 mmol/L 3.5-5 8509593098) AC CA IONZ (test code = 4.40 mg/dL 4.5-5.3 L 0096241300) GLUCOSE (test code = 346 mg/dL 70-110 H 8675873909) Lab Interpretation Abnormal (test code = 91673-2) [facility] 1 [id number] 02:26:311. ?New patchy consolidation of bilateral lungs since 06/09/2020 suspiciousfor multifocal pneumonia. Follow-up recommended to confirm resolution. RL: 6600End of report. ORDERING PHYSICIAN: ?Dmitri Mccoy CLINICAL HISTORY:sob TECHNIQUE:AP chestradiograph. COMPARISON:CXR 06/14/2020. FINDINGS:New patchy airspace consolidation throughout bilateral lungs suspicious formultifocal pneumonia. No signs of pleural effusion or pneumothorax.Cardiomediastinal contour is within normal limits. Visualized bones areunremarkable. [facility], Radiant Results Inft User - 06/17/2020 8:27 PM CSTORDERING PHYSICIAN: Dmitri Mccoy CLINICAL HISTORY:sob TECHNIQUE:AP chest r adiograph. COMPARISON:CXR 06/14/2020.FINDINGS:New patchy airspace consolidation throughout bilateral lungs suspicious formultifocal pneumonia. No signs of pleural effusion or pneumothorax.Cardiomediastinal contour is within normal limits. Visualized bones areunremarkable.IMPRESSION1. New patchy consolidation of bilateral lungs since 06/09/2020 suspiciousfor multifocal pneumonia. Follow-up recommended to confirm resolution.RL: 6600End of report. [facility] with [id number] 02:02:00 Test Item Value Reference Range Interpretation Comments WBC (test code = See_Comment [Automated 6368-2) message] The sy stem which generated this result transmitted reference range : 4.20 - 10.70 10*3/?L. The reference range was not used to interpret this result as normal/abnormal . RBC (test code = See_Comment [Automated 949-8) message] The sy stem which generated this result transmitted reference range : 4.26 - 5.52 10*6/?L. The reference range was not used to interpret this result as normal/abnormal . HGB (test code = 12.9 g/dL 12.2-16.4 718-7) HCT (test code = 39.1 % 38.4-49.3 4544-3) MCV (test code = 86.3 fL 81.7-95.6 787-2) MCH (test code = 28.5 pg 26.1-32.7 785-6) MCHC (test code = 33.0 g/dL 31.2-35 786-4) RDW-SD (test code = 39.6 fL 38.5-51.6 34382-9) RDW-CV (test code = 12.5 % 12.1-15.4 788-0) PLT (test code = See_Comment [Automated 777-3) message] The sy stem which generated this result transmitted reference range : 150 - 328 10*3/ ?L. The reference r vandana was not used to interpret this result as normal/abnormal . MPV (test code = 11.7 fL 9.8-13 35000-2) NRBC/100 WBC (test See_Comment [Automat ed code = 1809893932) message] The system which generated this result transmitted reference range : 0.0 - 10.0 /100 WBCs. The refer ence range was not u sed to interpret th is result as normal/abnormal . NRBC x10^3 (test code <0.01 See_Comment [Auto mated = 3936730772) message] The s MM[employer] Solutionstem which generated this result transmitted reference range : 10*3/?L. The reference range was not used to interpret this result as normal/abnormal . GRAN MAT (NEUT) % 78.0 % (test code = 770-8) IMM GRAN % (test code 0.20 % = 3963127635) LYMPH % (test code = 16.4 % 736-9) MONO % (test code = 4.8 % 5905-5) EOS % (test code = 0.2 % 713-8) BASO % (test code = 0.4 % 706-2) GRAN MAT x10^3(ANC) 4.42 10*3/uL 1.99-6.95 (test code = 2453327746) IMM GRAN x10^3 (test <0.03 0-0.06 code = 6800288275) LYMPH x10^3 (test code 0.93 10*3/uL 1.09-3.23 L = 731-0) MONO x10^3 (test code 0.27 10*3/uL 0.36-1.02 L = 742-7) EOS x10^3 (test code = <0.03 0.06-0.53 L 711-2) BASO x10^3 (test code <0.03 0.01-0.09 = 704-7) BANDS (test code = Increased A 6231260463) Lab Interpretation Abnormal (test code = 35922-8) [facility] [id number] 01:58:00 Test Item Value Reference Range Interpretation Comments TROPONIN I (test 0.008 ng/mL See_Comment [Automated code = 7844973670) message] The system which generated this result transmitted reference range : <=0.034. The reference range was not used to interpret this result as normal/abnormal . ANNMARIE (test code = Equal or Less than ANNMARIE) 0.034 ng/ml---Normal ?Note: Cardiac troponin begins to rise 3-4 hours after the onset of ischemia. Repeat in 4-6 hours if the sample was drawn within 3-4 hours of the onset of the symptom and found normal. Between 0.035 and 0.120 ng/mL--- Borderline. Questionable myocardial injury or necrosis ? ?Note: Serial measurement may be necessary to confirm or exclude the diagnosis of myocardial injury or necrosis; Clinical correlation (symptoms, EKGs, imaging studies, and others) required; Repeat in 4-6 hours if clinically indicated. ? Equal or Higher than 0.121 ng/mL---Abnormal. Myocardial Injury or Necrosis Likely ? Biotin has been reported to cause a negative bias, interpret results relative to patient's use of biotin. ? Lab Interpretation Normal (test code = 18348-8) [facility] (NA, K, CL, CO2, GLUCOSE, BUN, CREATININE, CA)2020-06-18 01:47:00 Test Item Value Reference Range Interpretation Comments NA (test code = 134 mmol/L 135-145 L 0858206500) K (test code = 4.5 mmol/L 3.5-5 7878317544) CL (test code = 98 mmol/L 98-108 8777475488) CO2 TOTAL (test code = 28 mmol/L 23-31 0358330173) AGAP (test code = 2-16 4087314702) BUN (test code = 18 mg/dL 7-23 1589749006) GLUCOSE (test code = 319 mg/dL 70-110 H 5539461867) CREATININE (test code = 0.81 mg/dL 0.6-1.25 4534590235) CALCIUM (test code = 8.3 mg/dL 8.6-10.6 L 4381037811) eGFR Calculation mL/min/1.73m2 (Non-) (test code = 1381449119) eGFR Calculation mL/min/1.73m2 () (test code = 0707264251) ANNMARIE (test code = ANNMARIE) Association of Glomerular Filtration Rate (GFR) and Staging of Kidney Disease* + --+ --+ ------+| GFR (mL/min/1.73 m2) ?| With Kidney Damage ?| ?Without Kidney Damage+ --------+ --------+ +| ?>90 ?| ?Stage one ?| ? Normal ?+ ---+ ---+ -------+| ?60-89 ?| ?Stage two ?| ? Decreased GFR ? + --+ --+ ------+| ?30-59 ?| ?Stage three ?| ? Stage three ? + --+ --+ ------+| ?15-29 ?| ?Stage four ? | ? Stage four ?+ ---+ ---+ -------+| ?<15 (or dialysis) ? ?| ?Stage five ? | ? Stage five ?+ ---+ ---+ -------+ *Each stage assumes the associated GFR level has been in effect for at least three months. ?Stages 1 to 5, with or without kidney disease, indicate chronic kidney disease. Notes: Determination of stages one and two (with eGFR >59mL/min/1.73 m2) requires estimation of kidney damage for at least three months as defined by structural or functional abnormalities of the kidney, manifested by either:Pathological abnormalities or Markers of kidney damage (including abnormalities in the composition of the blood or urine or abnormalities in imaging tests). Lab Interpretation Abnormal (test code = 29621-4) [facility] Lake[facility] Panel (ALB, T.PRO, BILI T, BU/BC, ALT, AST, ALK PHOS)2020-06-18 01:47:00 Test Item Value Reference Range Interpretation Comments TOTAL BILI (test code = 2993886493) 0.4 mg/dL 0.1-1.1 BILI UNCON (test code = 9445866009) 0.2 mg/dL 0.1-1.1 BILI CONJ (test code = 7567467712) 0.0 mg/dL 0-0.3 T PROTEIN (test code = 2369162184) 6.5 g/dL 6.3-8.2 ALBUMIN (test code = 6742005401) 3.5 g/dL 3.5-5 ALK PHOS (test code = 0303168349) 86 U/L 34-122 ALTv (test code = 1742-6) 24 U/L 5-50 AST(SGOT) (test code = 8557496189) 32 U/L 13-40 Lab Interpretation (test code = Normal 55428-1) [facility] LakeLactic Acid Whole [id number] 01:35:00 Test Item Value Reference Range Interpretation Comments LACTIC ACID (test code = 1.36 mmol/L 0.5-2.2 6019506176) Lab Interpretation (test code = Normal 47861-9) [facility] LakeTroponin [id number] 05:07:00 Test Item Value Reference Range Interpretation Comments TROPONIN I (test 0.008 ng/mL See_Comment [Automated code = 8929578208) message] The system which generated this result transmitted reference range : <=0.034. The reference range was not used to interpret this result as normal/abnormal . ANNMARIE (test code = Equal or Less than ANNMARIE) 0.034 ng/ml---Normal ?Note: Cardiac troponin begins to rise 3-4 hours after the onset of ischemia. Repeat in 4-6 hours if the sample was drawn within 3-4 hours of the onset of the symptom and found normal. Between 0.035 and 0.120 ng/mL--- Borderline. Questionable myocardial injury or necrosis ? ?Note: Serial measurement may be necessary to confirm or exclude the diagnosis of myocardial injury or necrosis; Clinical correlation (symptoms, EKGs, imaging studies, and others) required; Repeat in 4-6 hours if clinically indicated. ? Equal or Higher than 0.121 ng/mL---Abnormal. Myocardial Injury or Necrosis Likely ? Biotin has been reported to cause a negative bias, interpret results relative to patient's use of biotin. ? Lab Interpretation Normal (test code = 23613-1) [facility] Lake[facility] Metabolic Panel (NA, K, CL, CO2, GLUCOSE, BUN, CREATININE, CA)2020-06-15 04:56:00 Test Item Value Reference Range Interpretation Comments NA (test code = 133 mmol/L 135-145 L 8547767257) K (test code = 4.4 mmol/L 3.5-5 0914825401) CL (test code = 98 mmol/L 98-108 6635601114) CO2 TOTAL (test code = 25 mmol/L 23-31 3745020286) AGAP (test code = 2-16 0219767380) BUN (test code = 23 mg/dL 7-23 0013042179) GLUCOSE (test code = 259 mg/dL 70-110 H 6534564088) CREATININE (test code = 0.86 mg/dL 0.6-1.25 9620609878) CALCIUM (test code = 8.5 mg/dL 8.6-10.6 L 2035024340) eGFR Calculation mL/min/1.73m2 (Non-) (test code = 3170122076) eGFR Calculation mL/min/1.73m2 () (test code = 6555175896) ANNMARIE (test code = ANNMARIE) Association of Glomerular Filtration Rate (GFR) and Staging of Kidney Disease* + --+ --+ ------+| GFR (mL/min/1.73 m2) ?| With Kidney Damage ?| ?Without Kidney Damage+ --------+ --------+ +| ?>90 ?| ?Stage one ?| ? Normal ?+ ---+ ---+ -------+| ?60-89 ?| ?Stage two ?| ? Decreased GFR ? + --+ --+ ------+| ?30-59 ?| ?Stage three ?| ? Stage three ? + --+ --+ ------+| ?15-29 ?| ?Stage four ? | ? Stage four ?+ ---+ ---+ -------+| ?<15 (or dialysis) ? ?| ?Stage five ? | ? Stage five ?+ ---+ ---+ -------+ *Each stage assumes the associated GFR level has been in effect for at least three months. ?Stages 1 to 5, with or without kidney disease, indicate chronic kidney disease. Notes: Determination of stages one and two (with eGFR >59mL/min/1.73 m2) requires estimation of kidney damage for at least three months as defined by structural or functional abnormalities of the kidney, manifested by either:Pathological abnormalities or Markers of kidney damage (including abnormalities in the composition of the blood or urine or abnormalities in imaging tests). Lab Interpretation Abnormal (test code = 70093-3) [facility] (ALB, T.PRO, BILI T, BU/BC, ALT, AST, ALK PHOS)2020-06-15 04:56:00 Test Item Value Reference Range Interpretation Comments TOTAL BILI (test code = 6640902608) 0.3 mg/dL 0.1-1.1 BILI UNCON (test code = 0507165345) 0.2 mg/dL 0.1-1.1 BILI CONJ (test code = 7231107703) 0.0 mg/dL 0-0.3 T PROTEIN (test code = 3008779177) 6.9 g/dL 6.3-8.2 ALBUMIN (test code = 4377268240) 3.6 g/dL 3.5-5 ALK PHOS (test code = 2477787495) 88 U/L 34-122 ALTv (test code = 1742-6) 34 U/L 5-50 AST(SGOT) (test code = 1005290581) 37 U/L 13-40 Lab Interpretation (test code = Normal 39648-0) [facility] [id number] 04:56:00 Test Item Value Reference Range Interpretation Comments LIPASE (test code = 9624245605) 216 U/L 0-220 Lab Interpretation (test code = Normal 63571-2) [facility] Lake[facility]hest 1 [id number] 04:51:40 No acute cardiopulmonary abnormality. Preliminary Report Dictated by Resident: Ioana Valles MD., have reviewed this study and agree with theabove report.EXAM: XR CHEST 1 VW HISTORY: chest pain COMPARISON: None Technique: ?AP view radiograph of the chest FINDINGS: The lungs are underinflated but clear. No focal consolidation, pleuraleffusion or pneumothorax is seen. The cardiac silhouette is normal in size. No acute bony abnormality. [facility], Radiant Results Inft User - 06/14/2020 10:52 PM CSTEXAM: XR CHEST 1 VWHISTORY: chest pain COMPARISON: NoneTechnique: AP view radiograph of the chestFINDINGS:The lungs are underinflated but clear. No focal consolidation, pleuraleffusionor pneumothorax is seen. The cardiac silhouette is normal in size.No acute bony abnormality.IMPRESSIONNo acute cardiopulmonary abnormality.Preliminary Report Dictated by Resident: Ioana Lindsey MD., have reviewed this study and agree with theabove report. [facility] with [id number] 04:45:00 Test Item Value Reference Range Interpretation Comments WBC (test code = See_Comment [Automated 6690-2) message] The sy stem which generated this result transmitted reference range : 4.20 - 10.70 10*3/?L. The reference range was not used to interpret this result as normal/abnormal . RBC (test code = See_Comment [Automated 789-8) message] The sy stem which generated this result transmitted reference range : 4.26 - 5.52 10*6/?L. The reference range was not used to interpret this result as normal/abnormal . HGB (test code = 12.8 g/dL 12.2-16.4 718-7) HCT (test code = 38.7 % 38.4-49.3 4544-3) MCV (test code = 87.4 fL 81.7-95.6 787-2) MCH (test code = 28.9 pg 26.1-32.7 785-6) MCHC (test code = 33.1 g/dL 31.2-35 786-4) RDW-SD (test code = 40.2 fL 38.5-51.6 90363-4) RDW-CV (test code = 12.5 % 12.1-15.4 788-0) PLT (test code = See_Comment L [Automated 777-3) message] The sy stem which generated this result transmitted reference range : 150 - 328 10*3/ ?L. The reference r vandana was not used to interpret this result as normal/abnormal . MPV (test code = 11.8 fL 9.8-13 04716-3) NRBC/100 WBC (test See_Comment [Automat ed code = 3231582214) message] The system which generated this result transmitted reference range : 0.0 - 10.0 /100 WBCs. The refer ence range was not u sed to interpret th is result as normal/abnormal . NRBC x10^3 (test code <0.01 See_Comment [Auto mated = 8946310293) message] The s ystem which generated this result transmitted reference range : 10*3/?L. The reference range was not used to interpret this result as normal/abnormal . GRAN MAT (NEUT) % 57.9 % (test code = 770-8) IMM GRAN % (test code 0.00 % = 8902493758) LYMPH % (test code = 26.9 % 736-9) MONO % (test code = 13.8 % 5905-5) EOS % (test code = 1.2 % 713-8) BASO % (test code = 0.2 % 706-2) GRAN MAT x10^3(ANC) 2.84 10*3/uL 1.99-6.95 (test code = 1764394903) IMM GRAN x10^3 (test <0.03 0-0.06 code = 8434859238) LYMPH x10^3 (test code 1.32 10*3/uL 1.09-3.23 = 731-0) MONO x10^3 (test code 0.68 10*3/uL 0.36-1.02 = 742-7) EOS x10^3 (test code = 0.06 10*3/uL 0.06-0.53 711-2) BASO x10^3 (test code <0.03 0.01-0.09 = 704-7) Lab Interpretation Abnormal (test code = 59614-3) [facility]2020-01-13 22:42:00 Test Item Value Reference Range Interpretation Comments POCT GLU (test code = 1861074502) 134 mg/dL 70-110 H Lab Interpretation (test code = Abnormal 49050-4) [facility] (ID NOW RAPID TESTING)2020-01-13 22:18:00 Test Item Value Reference Range Interpretation Comments SARS-CoV-2 Rapid ID NOW Not Detected Not Detected (test code = 83623-9) ANNMARIE (test code = ANNMARIE) ID NOW COVID-19 Assay is an isothermal nucleic acid amplification test intended for the qualitative detection of nucleic acid from SARS-CoV-2 viral RNA in nasopharyngeal (SAFE [employer] VA[employer]ST[employer]ER) specimens. It is used under Emergency Use Authorization (EUA) by FDA. The limit of detection (LOD) of the assay is 125 Genome Equivalents/mL. A positive result is indicative of the presence of SARS-CoV-2 RNA. ?Clinical correlation with patient history and other diagnostic information is necessary to determine patient infection status. A negative (Not Detected) result does not preclude SARS-CoV-2 infection. In patients with clinical symptoms and other tests that are consistent with SARS-CoV-2 infection, negative results should be treated as presumptive negative and a new specimen should be tested with alternative PCR molecular test. Invalid: Please collect a new specimen for repeat patient testing if clinically indicated. Lab Interpretation Normal (test code = 00837-6) [facility]. METABOLIC PANEL (47030)2020-01-13 20:43:00 Test Item Value Reference Range Interpretation Comments NA (test code = 135 mmol/L 135-145 5710052166) K (test code = 4.7 mmol/L 3.5-5 0807111406) CL (test code = 102 mmol/L 98-108 5801161419) CO2 TOTAL (test code = 30 mmol/L 23-31 1397595761) AGAP (test code = 2-16 4625895430) BUN (test code = 17 mg/dL 7-23 2470524750) GLUCOSE (test code = 425 mg/dL 70-110 H 7105981194) CREATININE (test code = 0.83 mg/dL 0.6-1.25 0587911481) TOTAL BILI (test code = 0.6 mg/dL 0.1-1.3 8100958788) CALCIUM (test code = 9.2 mg/dL 8.6-10.6 6675844286) T PROTEIN (test code = 6.6 g/dL 6.3-8.2 5066188189) ALBUMIN (test code = 3.6 g/dL 3.5-5 7171156725) ALK PHOS (test code = 144 U/L 34-122 H 6866840899) ALTv (test code = 29 U/L 5-50 1742-6) AST(SGOT) (test code = 29 U/L 13-40 3635269515) eGFR Calculation mL/min/1.73m2 (Non-) (test code = 4447901462) eGFR Calculation mL/min/1.73m2 () (test code = 7866445875) ANNMARIE (test code = ANNMARIE) Association of Glomerular Filtration Rate (GFR) and Staging of Kidney Disease* + --+ --+ ------+| GFR (mL/min/1.73 m2) ?| With Kidney Damage ?| ?Without Kidney Damage+ --------+ --------+ +| ?>90 ?| ?Stage one ?| ? Normal ?+ ---+ ---+ -------+| ?60-89 ?| ?Stage two ?| ? Decreased GFR ? + --+ --+ ------+| ?30-59 ?| ?Stage three ?| ? Stage three ? + --+ --+ ------+| ?15-29 ?| ?Stage four ? | ? Stage four ?+ ---+ ---+ -------+| ?<15 (or dialysis) ? ?| ?Stage five ? | ? Stage five ?+ ---+ ---+ -------+ *Each stage assumes the associated GFR level has been in effect for at least three months. ?Stages 1 to 5, with or without kidney disease, indicate chronic kidney disease. Notes: Determination of stages one and two (with eGFR >59mL/min/1.73 m2) requires estimation of kidney damage for at least three months as defined by structural or functional abnormalities of the kidney, manifested by either:Pathological abnormalities or Markers of kidney damage (including abnormalities in the composition of the blood or urine or abnormalities in imaging tests). Lab Interpretation Abnormal (test code = 94190-2) [facility] [id number] 20:43:00 Test Item Value Reference Range Interpretation Comments LIPASE (test code = 8555562506) 133 U/L 0-220 Lab Interpretation (test code = Normal 67481-0) [facility] Lake[facility] with [id number] 20:21:00 Test Item Value Reference Range Interpretation Comments WBC (test code = See_Comment [Automated 1890-2) message] The sy stem which generated this result transmitted reference range : 4.20 - 10.70 10*3/?L. The reference range was not used to interpret this result as normal/abnormal . RBC (test code = See_Comment [Automated 886-8) message] The sy stem which generated this result transmitted reference range : 4.26 - 5.52 10*6/?L. The reference range was not used to interpret this result as normal/abnormal . HGB (test code = 12.7 g/dL 12.2-16.4 718-7) HCT (test code = 37.9 % 38.4-49.3 L 4544-3) MCV (test code = 87.1 fL 81.7-95.6 787-2) MCH (test code = 29.2 pg 26.1-32.7 785-6) MCHC (test code = 33.5 g/dL 31.2-35 786-4) RDW-SD (test code = 41.1 fL 38.5-51.6 99353-4) RDW-CV (test code = 13.1 % 12.1-15.4 788-0) PLT (test code = See_Comment [Automated 777-3) message] The sy stem which generated this result transmitted reference range : 150 - 328 10*3/ ?L. The reference r vandana was not used to interpret this result as normal/abnormal . MPV (test code = 11.5 fL 9.8-13 17268-8) NRBC/100 WBC (test See_Comment [Automat ed code = 5056126387) message] The system which generated this result transmitted reference range : 0.0 - 10.0 /100 WBCs. The refer ence range was not u sed to interpret th is result as normal/abnormal . NRBC x10^3 (test code <0.01 See_Comment [Auto mated = 7776864357) message] The s ystem which generated this result transmitted reference range : 10*3/?L. The reference range was not used to interpret this result as normal/abnormal . GRAN MAT (NEUT) % 52.3 % (test code = 770-8) IMM GRAN % (test code 0.20 % = 9112678509) LYMPH % (test code = 32.5 % 736-9) MONO % (test code = 11.4 % 5905-5) EOS % (test code = 2.8 % 713-8) BASO % (test code = 0.8 % 706-2) GRAN MAT x10^3(ANC) 3.41 10*3/uL 1.99-6.95 (test code = 7407250135) IMM GRAN x10^3 (test <0.03 0-0.06 code = 5429452705) LYMPH x10^3 (test code 2.11 10*3/uL 1.09-3.23 = 731-0) MONO x10^3 (test code 0.74 10*3/uL 0.36-1.02 = 742-7) EOS x10^3 (test code = 0.18 10*3/uL 0.06-0.53 711-2) BASO x10^3 (test code 0.05 10*3/uL 0.01-0.09 = 704-7) Lab Interpretation Abnormal (test code = 55493-4) [facility]
[2022-01-19] MEDS ORDERED: INSULIN -REGULAR HUMAN 50 UNIT/0.5 ML ML ONE (14:16)
[2022-01-19] MEDS ORDERED: NA CHLORIDE 0.9% 1,000 ML ONE (14:16)
[2022-01-19 14:33] LABS: Absolute Lymphocytes (CBC) 2.4 K/uL (0.7-4.9); Hematocrit 38.8 % (39.6-49.0); Lymphocytes % 37.3 % (15.3-44.8); MCV 86.6 fL (80-100); MPV 9.5 fL (7.6-11.3); RBC Red Blood Cell Count 4.48 M/uL (4.33-5.43)
--- NOTE | 2022-01-19 14:38 | RAD REPORT ---
EXAM DESCRIPTION: RAD - Chest Single View - 01/19/2022 2:27 pm CLINICAL HISTORY: CHEST PAIN Chest pain. COMPARISON: No comparisons FINDINGS: Portable technique limits examination quality. The lungs are grossly clear. The heart is normal in size. No displaced fractures. IMPRESSION: No acute intrathoracic process suspected.
[2022-01-19 14:47] LABS: BUN Blood Urea Nitrogen 44 mg/dL (7-18); Bicarbonate 27 mmol/L (21-32); Glomerular Filtration Rate 48 ml/min (=/>90); Potassium 4.3 mmol/L (3.5-5.1); Sodium Level 132 mmol/L (136-145); Troponin High Sensitivity 10.8 pg/mL (<58.9)
[2022-01-19 14:49] LABS: Glucose Level 457 mg/dL (74-106)
--- NOTE | 2022-01-19 15:40 | ER ---
Nurse's Notes [facility] Name: Kishore Colmenares Age: 56 yrs Sex: Male : 1965 Arrival Date: 01/19/2022 Time: 13:47 Bed 7 Private MD: Diagnosis: Hyperglycemia, unspecified;Chest pain, unspecified;Muscle weakness (generalized) Presentation: 01/19 13:48 Chief complaint: EMS states: "patient was attending an diabetes class and his blood em6 sugar was at 423. he states not taking his medication. he reports feeling weak, dizzy and epigastric pain at an 8 out of 10. has an 18 g in right AC, started on 1000 ml of NS and 324 of aspirin PO.". Coronavirus screen: At this time, the client does not indicate any symptoms associated with coronavirus-19. Ebola Screen: Patient negative for fever greater than or equal to 101.5 degrees Fahrenheit, and additional compatible Ebola Virus Disease symptoms. Initial Sepsis Screen: Does the patient meet any 2 criteria? No. Patient's initial sepsis screen is negative. Does the patient have a suspected source of infection? No. Patient's initial sepsis screen is negative. Risk Assessment: Do you want to hurt yourself or someone else? Patient reports no desire to harm self or others. Onset of symptoms was January 19, 2022. 13:48 Method Of Arrival: EMS: [facility] em6 13:48 Acuity: ANGE 3 em6 Triage Assessment: 13:52 General: Appears comfortable, Behavior is cooperative, drowsy. Pain: Complains of pain em6 in neck Pain does not radiate. Pain currently is 8 out of 10 on a pain scale. Quality of pain is described as sharp, Pain began. Neuro: Conklin Agitation-Sedation Scale (RASS): 0 - Alert and Calm. Historical: - Allergies: 14:28 No Known Allergies; em6 - Home Meds: 14:28 metformin Oral 2 times per day [Active]; em6 - PMHx: 14:28 None; em6 - PSHx: 14:28 None; em6 - Immunization history:: Adult Immunizations unknown. - Social history:: Smoking status: unknown. Screenin:51 Abuse screen: Denies threats or abuse. Nutritional screening: No deficits noted. em6 Tuberculosis screening: No symptoms or risk factors identified. Fall Risk No fall in past 12 months (0 pts). No secondary diagnosis (0 pts). IV access (20 points). Ambulatory Aid- None/Bed Rest/Nurse Assist (0 pts). Gait- Weak (10 pts.). Mental Status- Oriented to own ability (0 pts). Total Lizarraga Fall Scale indicates Low Risk Score (25-44 pts). Assessment: 13:48 General: Appears comfortable, Behavior is cooperative, drowsy. Pain: Complains of pain em6 in neck Pain does not radiate. Pain currently is 8 out of 10 on a pain scale. Quality of pain is described as. 13:48 Pain: Quality of pain is described as sharp. em6 13:48 Neuro: Conklin Agitation-Sedation Scale (RASS): -1 Drowsy Level of Consciousness is em6 awake, alert, obeys commands, Oriented to person, place, time, situation. Cardiovascular: Heart tones present Capillary refill < 3 seconds Patient's skin is warm and dry. Rhythm is sinus rhythm. Respiratory: Airway is patent Respiratory effort is even, unlabored, Respiratory pattern is regular, symmetrical, Breath sounds are clear bilaterally. GI: Abdomen is non-distended, Abd is soft and non tender X 4 quads. : No signs and/or symptoms were reported regarding the genitourinary system. EENT: No signs and/or symptoms were reported regarding the EENT system. Derm: No signs and/or symptoms reported regarding the dermatologic system. Musculoskeletal: Circulation, motion, and sensation intact. Range of motion: intact in all extremities. 13:48 Reassessment: Reassessment: blood sugar of [address] morgan. No new orders . em6 15:00 Reassessment: Patient appears in no apparent distress at this time. Patient is alert, em6 oriented x 3, equal unlabored respirations, skin warm/dry/pink. Patient states symptoms have improved. 16:00 Reassessment: Patient appears in no apparent distress at this time. Patient and/or em6 family updated on plan of care and expected duration. Pain level reassessed. Patient is alert, oriented x 3, equal unlabored respirations, skin warm/dry/pink. Patient states feeling better. Vital Signs: 13:54 BP 123 / 96; Pulse 66; Resp 14; Temp 98.4; Pulse Ox 94% on R/A; Weight 108.86 kg; em6 Height 6 ft. 1 in. (185.42 cm); Pain 8/10; 14:45 BP 152 / 100; Pulse 62; Resp 10; Pulse Ox 97% on R/A; em6 16:03 BP 143 / 90; Pulse 65; Resp 16; Pulse Ox 100% on R/A; em6 13:54 Body Mass Index 31.66 (108.86 kg, 185.42 cm) em6 ED Course: 13:47 Patient arrived in ED. em6 13:48 Arm band placed on. em6 13:48 Patient has correct armband on for positive identification. Bed in low position. Call em6 light in reach. Side rails up X2. quality assurance monitor on. Pulse ox on. NIBP on. Warm blanket given. 13:48 Maintain EMS IV. Dressing intact. Good blood return noted. Site clean \\T\\ dry. Gauge \\T\\ em 6 site: 18 G at right AC. 13:49 Abdulaziz Morgan DO is Attending Physician. ms3 13:51 Triage completed. em6 14:29 XRAY Chest (1 view) In Process Unspecified. EDMS 14:50 Eyad Fernandez, RN is Primary Nurse. jd3 15:38 Ronal Maldonado DO is Referral Physician. ms3 16:00 No provider procedures requiring assistance completed. em6 16:00 IV discontinued, intact, bleeding controlled, No redness/swelling at site. Pressure em6 dressing applied. Administered Medications: 14:05 Drug: Insulin Regular Human 10 units {Co-Signature: jd3 (Eyad Fernandez RN).} Route: em6 Sub-Q; Site: right upper arm; 15:00 Follow up: Response: No adverse reaction em6 14:05 Drug: NS 0.9% 1000 ml Route: IV; Rate: 1000 ml; Site: right antecubital; em6 16:08 Follow up: Response: No adverse reaction; IV Status: Completed infusion; IV Intake: em6 1000ml Medication: 14:22 VIS not applicable for this client. em6 Intake: 16:08 IV: 1000ml; Total: 1000ml. em6 Outcome: 15:39 Discharge ordered by . ms3 16:00 Condition: stable em6 16:00 Discharged to home ambulatory. em6 16:00 Discharge instructions given to patient, Instructed on discharge instructions, follow up and referral plans. Demonstrated understanding of instructions, follow-up care. 16:17 Patient left the ED. em6 Signatures: Dispatcher [employer] Eyad Street, BREANNA RN jd3 Abdulaziz Morgan DO DO ms3 Nidia Solis RN RN em6 Eyad Fernandez RN jd3 Corrections: (The following items were deleted from the chart) 14:30 13:54 BP 123 / 96; Pulse 66bpm; Resp 14bpm; Pulse Ox 94% RA; Temp 98.4F; Pain 8/10; em6 em6
--- NOTE | 2022-01-19 15:40 | EDPHYS ---
Physician Documentation [facility] Name: Kishore Colmenares Age: 56 yrs Sex: Male : 1965 Arrival Date: 01/19/2022 Time: 13:47 Bed 7 Private MD: ED Physician Abdulaziz Hwang HPI: 01/19 15:06 This 56 yrs old Male presents to ER via EMS with complaints of High Blood ms3 Sugar. 15:06 56-year-old male with past medical history of diabetes presents via EMS for dizziness, ms3 weakness, chest discomfort that began while at his diabetes management class. Patient notes he did not take his medicationsmetformin and insulintoday. EMS states in route they gave patient 324 mg aspirin and 200 mL normal saline. Patient's blood glucose level by EMS was noted to be 423. Patient states the symptoms have been present intermittently for 1 month. Patient states the pain in his chest is an 8/10 described as cramping. Patient denies alleviating or inciting factors.. Historical: - Allergies: 14:28 No Known Allergies; em6 - Home Meds: 14:28 metformin Oral 2 times per day [Active]; em6 - PMHx: 14:28 None; em6 - PSHx: 14:28 None; em6 - Immunization history:: Adult Immunizations unknown. - Social history:: Smoking status: unknown. ROS: 15:06 Constitutional: Negative for fever, and chills. Neck: Negative for injury, pain, and ms3 swelling, Respiratory: Negative for shortness of breath, cough, wheezing, and pleuritic chest pain. 15:06 Cardiovascular: Positive for chest pain. 15:06 MS/extremity: Positive for Generalized weakness. 15:06 All other systems are negative. Exam: 13:47 ECG was reviewed by the Attending Physician. ms3 15:06 Constitutional: This is a well developed, well nourished patient who is awake, alert, ms3 and in no acute distress. Head/Face: Normocephalic, atraumatic. Neck: Trachea midline, no cervical lymphadenopathy. Supple, full range of motion without nuchal rigidity, or vertebral point tenderness. No Meningismus. Chest/axilla: Normal chest wall appearance and motion. Nontender with no deformity. Cardiovascular: Regular rate and rhythm with a normal S1 and S2. No gallops, murmurs, or rubs. Normal PMI, no JVD. No pulse deficits. Respiratory: Lungs have equal breath sounds bilaterally, clear to auscultation and percussion. No rales, rhonchi or wheezes noted. No increased work of breathing, no retractions or nasal flaring. Abdomen/GI: Soft, non-tender, with normal bowel sounds. No distension or tympany. No guarding or rebound. No evidence of tenderness throughout. Back: No spinal tenderness. No costovertebral tenderness. Full range of motion. Skin: Warm, dry with normal turgor. Normal color with no rashes, no lesions, and no evidence of cellulitis. MS/ Extremity: Pulses equal, no cyanosis. Neurovascular intact. Full, normal range of motion. Psych: Awake, alert, with orientation to person, place and time. Behavior, mood, and affect are within normal limits. Vital Signs: 13:54 BP 123 / 96; Pulse 66; Resp 14; Temp 98.4; Pulse Ox 94% on R/A; Weight 108.86 kg; em6 Height 6 ft. 1 in. (185.42 cm); Pain 8/10; 14:45 BP 152 / 100; Pulse 62; Resp 10; Pulse Ox 97% on R/A; em6 16:03 BP 143 / 90; Pulse 65; Resp 16; Pulse Ox 100% on R/A; em6 13:54 Body Mass Index 31.66 (108.86 kg, 185.42 cm) em6 MDM: 13:56 Patient medically screened. ms3 15:06 Differential diagnosis: DKA, hyperglycemia, ACS. ms3 15:52 Data reviewed: vital signs, nurses notes, lab test result(s), EKG, radiologic studies, ms3 and as a result, I will discharge patient. Data interpreted: monitor technician: rate is 65 beats/min, rhythm is normal sinus rhythm, regular, with no ectopy, Interpretation: normal rate, normal rhythm, Pulse oximetry: on room air is 94 %. Interpretation: normal. Counseling: I had a detailed discussion with the patient and/or guardian regarding: the historical points, exam findings, and any diagnostic results supporting the discharge/admit diagnosis, lab results, the need for outpatient follow up, to return to the emergency department if symptoms worsen or persist or if there are any questions or concerns that arise at home. ED course: Patient symptoms improved at this time. Patient states he would like to be discharged. Patient is alert and orient x4, in no apparent distress, nontoxic, ambulatory in emergency department. Patient follow-up with his primary care physician in 2 to 3 days. Patient understands and agrees with plan. All questions were answered. Return precautions discussed include worsening symptoms, or any other concerns.. 01/19 13:57 Order name: Basic Metabolic Panel; Complete Time: 14:53 ms3 01/19 13:57 Order name: CBC with Diff; Complete Time: 14:53 ms3 01/19 13:57 Order name: Troponin HS; Complete Time: 14:53 ms3 01/19 13:57 Order name: Ketone, Serum; Complete Time: 14:53 ms3 01/19 14:08 Order name: Glucose, Ancillary Testing; Complete Time: 14:43 EDMS 01/19 15:33 Order name: Glucose, Ancillary Testing EDMS 01/19 13:57 Order name: XRAY Chest (1 view); Complete Time: 14:43 ms3 01/19 13:57 Order name: EKG; Complete Time: 13:57 ms3 01/19 13:57 Order name: Cardiac monitoring; Complete Time: 14:02 ms3 01/19 13:57 Order name: EKG - Nurse/Tech; Complete Time: 14:02 ms3 01/19 13:57 Order name: IV Saline Lock; Complete Time: 14:02 ms3 01/19 13:57 Order name: Labs collected and sent; Complete Time: 14:02 ms3 01/19 13:57 Order name: O2 Per Protocol; Complete Time: 14:02 ms3 01/19 13:57 Order name: O2 Sat Monitoring; Complete Time: 14:02 ms3 01/19 15:10 Order name: Glucose Level; Complete Time: 15:25 ms3 EC:47 Rate is 64 beats/min. Rhythm is regular. Left axis deviation noted. SD interval is ms3 normal. QRS interval is normal. Clinical impression: NSR w/ Non-specific ST/T Changes. Interpreted by me. Reviewed by me. Administered Medications: 14:05 Drug: Insulin Regular Human 10 units {Co-Signature: jd3 (Eyad Fernandez RN).} Route: em6 Sub-Q; Site: right upper arm; 15:00 Follow up: Response: No adverse reaction em6 14:05 Drug: NS 0.9% 1000 ml Route: IV; Rate: 1000 ml; Site: right antecubital; em6 16:08 Follow up: Response: No adverse reaction; IV Status: Completed infusion; IV Intake: em6 1000ml Disposition Summary: 01/19/22 15:39 Discharge Ordered Location: Home ms3 Condition: Stable ms3 Diagnosis - Hyperglycemia, unspecified ms3 - Chest pain, unspecified ms3 - Muscle weakness (generalized) ms3 Followup: ms3 - With: Ronal Maldonado DO - When: 2 - 3 days - Reason: Recheck today's complaints, Re-evaluation by your physician Followup: ms3 - With: Private Physician - When: 2 - 3 days - Reason: Recheck today's complaints, Re-evaluation by your physician Discharge Instructions: - Discharge Summary Sheet ms3 - Nonspecific Chest Pain, Adult ms3 - Hyperglycemia ms3 - Weakness, [id number] ms3 Forms: - Medication Reconciliation Form ms3 - Thank You Letter ms3 - Antibiotic Education ms3 - Prescription Opioid Use ms3 Signatures: Dispatcher [employer] EDAbdulaziz Hairston DO DO ms3 Nidia Solis RN RN em6 Eyad Fernandez RN jd3
[2022-01-19 16:58] VITALS: TEMP 98.4
[2022-01-19 17:04] VITALS: BP 143/90; O2SAT 100
--- NOTE | 2022-01-20 07:21 | EKG ---
Test Date: 2022-01-19 Test Time: 13:47:33 Supervisor Type Bar And Segment: SAVANNAH MEASUREMENT RESULTS: Intervals: Rate: 64 VT: 200 QRSD: 114 QT: 420 QTc: 433 Lissie: P: 60 VT: 200 QRS: -11 T: 0 INTERPRETIVE STATEMENTS: Normal sinus rhythm Minimal voltage criteria for LVH, may be normal variant Anterior infarct, age undetermined Abnormal ECG No previous ECG available for comparison Electronically Signed On 01-20-22 07:18:39 CDT by Mukund Duarte
== END 2022-01-19 16:17 | disposition home or self-care (01) ==
LOC: ER 13:45
DX: R07.9 Chest pain, unspecified (principal); E11.65 Type 2 diabetes mellitus with hyperglycemia; Z79.4 Long term (current) use of insulin; M62.81 Muscle weakness (generalized)
CPT/HCPCS: 36415; 71045; 80048; 82010; 82947; 84484; 85025; 93005; 96360; 96361; 96372; 99284; J1815; J7030